=== PATIENT | male | born 1955 | race Caucasian/White ===

== ENCOUNTER 2022-12-18 09:25 | Outpatient (OUT) | payer MEDICARE, MEDICAID, SELFPAY ==
--- NOTE | 2022-12-18 09:32 | CT_ITS ---
[address] [address] Patient Name: CRISTAL LANGLEY MRN: [id number] date: 1955 Sex: M Assigned Patient Location: CT Current Patient Location: CT Accession/Order Number: [id number] Exam Date: 12/18/2022 09:48 Report Date: 12/18/2022 11:10 At the request of: ARIN CRENSHAW Procedure: CT lung screening low-dose EXAMINATION: CT lung screening low-dose HISTORY: History Of Tobacco Dependence Z87.891 COMPARISON: CT chest 11/21/2021 TECHNIQUE: Axial, Coronal, and Sagittal images were created without the administration of IV contrast material. Dose reduction techniques were achieved by using automated exposure control and/or adjustment of mA and/or kV according to patient size and/or use of iterative reconstruction technique. FINDINGS: LUNGS: Right middle lobe 8 mm nodule; stable. Stable mild stranding within left upper lobe compatible with chronic scarring. No new nodules. PLEURA: No mass, effusion, or pneumothorax. VASCULATURE: No abnormality. MARIANA: No mass or pathologic adenopathy. MEDIASTINUM: No mass or pathologic adenopathy. CARDIAC: No enlargement, pericardial thickening, or significant calcification. AORTA: No aneurysm or dissection. CHEST WALL: No mass or axillary adenopathy BONES: No bone lesion or fracture. LIMITED ABDOMEN: No suspicious findings. Limited images of the upper abdomen. OTHER: Negative. CT/CT lung screening low-dose IMPRESSION: 1. Lung-RADS 2- Benign Appearance or Behavior. Nodules with a very low likelihood of becoming a clinically active cancer due to size or lack of growth. Follow-up CT Chest in 1 year. Electronically authenticated by: ANTOINETTE HOLLINGSWORTH Date: 12/18/2022 11:10
== END 2022-12-18 09:26 | disposition home or self-care (01) ==
LOC: CT 09:25
PROVIDERS: PCP Nurse Practitioner; Visit Provider Nurse Practitioner
DX: F17.210 Nicotine dependence, cigarettes, uncomplicated (principal)
CPT/HCPCS: 71271

== ENCOUNTER 2023-12-07 08:11 | Outpatient (OUT) | payer MEDICARE, MEDICAID, SELFPAY ==
[2023-12-07 09:01] LABS: Creatinine Urine Random 103.44 mg/dL (20.00-300.00); Microalbumin Urine Random <1.3 mg/dL (<=30.0)
[2023-12-07 09:07] LABS: Alanine Aminotransferase 19 U/L (16-63); Albumin Globulin Ratio 0.9; Albumin Level 3.3 g/dL (3.4-5.0); Alkaline Phosphatase 93 U/L (46-116); Anion Gap 12.9; Aspartate Amino Transferase 17 U/L (15-37); BUN Creatinine Ratio 8.7; Bilirubin Total 0.4 mg/dL (0.2-1.0); Calcium 8.8 mg/dL (8.5-10.1); Carbon Dioxide 27.4 mmol/L (21.0-32.0); Chloride 105 mmol/L (98-107); Chol HDL Ratio 3.4; Cholesterol 161 mg/dL (<=200); Estimated GFR (African America >60 (>=60); Estimated GFR (Non-African Ame >60 (>=60); Globulin 3.5 g/dL; Glucose 101 mg/dL (74-106); HDL Cholesterol 48 mg/dL (40-60); LDL Cholesterol Calculated 94.4 mg/dL; Potassium 4.3 mmol/L (3.5-5.1); Sodium 141 mmol/L (136-145); Total Protein 6.8 g/dL (6.4-8.2); Triglycerides 93 mg/dL (<=150); VLDL CHOLESTEROL 18.6 mg/dL
[2023-12-07 09:13] LABS: Bilirubin Urine NEGATIVE (NEGATIVE); Blood Urine NEGATIVE (NEGATIVE); Clarity Urine CLEAR (CLEAR); Color Urine LT. YELLOW (YELLOW); Glucose Urine UA NEGATIVE (NEGATIVE); Ketones Urine NEGATIVE (NEGATIVE); Leukocyte Esterase Urine NEGATIVE (NEGATIVE); Nitrite Urine NEGATIVE (NEGATIVE); Protein Urine NEGATIVE (NEG/TRACE); Specific Gravity Urine 1.025 (1.005-1.025); Urobilinogen Urine 0.2 EU/dL (0.2-1.0); pH Urine 6.5 (5.0-9.0)
[2023-12-07 09:15] LABS: Basophils Absolute Auto 0.1 10^3/uL (0.0-0.1); Basophils Percent Auto 0.8 % (0.2-2.0); Eosinophils Absolute Auto 0.4 10^3/uL (0.0-0.7); Hemoglobin 14.6 g/dL (14.0-18.0); Immature Granulocytes Abs Auto 0.02 10^3/uL (0.00-0.03); Immature Granulocytes Pct Auto 0.3 % (0.0-0.5); Lymphocytes Absolute Auto 1.9 10^3/uL (1.2-3.8); Lymphocytes Percent Auto 25.4 % (20.5-60.0); Mean Corpuscular HGB Conc 33.2 g/dL (29.9-35.2); Mean Corpuscular Hemoglobin 31.1 pg (25.9-34.0); Mean Corpuscular Volume 93.8 fL (80.0-94.0); Mean Platelet Volume 10.3 fL (9.5-13.5); Monocytes Absolute Auto 0.8 10^3/uL (0.3-0.8); Monocytes Percent Auto 10.8 % (1.7-12.0); Neutrophils Absolute Auto 4.3 10^3/uL (1.4-6.5); Neutrophils Percent Auto 57.7 % (43.0-75.0); Platelet Count 227 10^3/uL (150-450); Red Blood Count 4.69 10^6/uL (4.70-6.10); Red Cell Distribution Width 14.2 % (11.0-15.0); White Blood Count 7.4 10^3/uL (4.0-11.0)
[2023-12-07 09:55] LABS: Prostate Specific Antigen Scrn 0.37 ng/mL (<=4.00)
[2023-12-07 10:04] LABS: Urine Microscopic Indicated NO
== END 2023-12-07 08:12 | disposition home or self-care (01) ==
LOC: LAB 08:14
PROVIDERS: PCP Nurse Practitioner; Visit Provider Nurse Practitioner
DX: E78.2 Mixed hyperlipidemia (principal); I10 Essential (primary) hypertension; Z12.5 Encounter for screening for malignant neoplasm of prostate
CPT/HCPCS: 36415; 80053; 80061; 81003; 82043; 82570; 85025; G0103

== ENCOUNTER 2024-01-14 10:00 | Outpatient (OUT) | payer MEDICARE, MEDICAID, SELFPAY ==
--- NOTE | 2024-01-14 10:10 | CT_ITS ---
[address] [address] Patient Name: CRISTAL LANGLEY MRN: [id number] date: 1955 Sex: M Assigned Patient Location: CT Current Patient Location: Accession/Order Number: [id number] Exam Date: 01/14/2024 10:05 Report Date: 01/15/2024 09:25 At the request of: ARIN CRENSHAW Procedure: CT lung screening low-dose EXAMINATION: CT lung screening low-dose HISTORY: Nicotine dependence,F17.218 COMPARISON: CT lung cancer screening 12/18/2022 TECHNIQUE: Axial, Coronal, and Sagittal images were created without the administration of IV contrast material. Dose reduction techniques were achieved by using automated exposure control and/or adjustment of mA and/or kV according to patient size and/or use of iterative reconstruction technique. FINDINGS: LUNGS: Stable 8 mm nodule within right middle lobe. Stable thin curvilinear scarring within left upper lobe. No new nodules or acute infiltrates. PLEURA: No mass, effusion, or pneumothorax. VASCULATURE: No abnormality. MARIANA: No mass or pathologic adenopathy. MEDIASTINUM: No mass or pathologic adenopathy. CARDIAC: No enlargement, pericardial thickening, or pericardial effusion. Coronary Artery calcifications: Coronary calcifications are mild. AORTA: No aneurysm or dissection. CHEST WALL: No mass or axillary adenopathy BONES: No bone lesion or fracture. LIMITED ABDOMEN: Stable right hepatic dome small cyst versus hemangioma. Limited images of the upper abdomen. OTHER: Negative. CT/CT lung screening low-dose IMPRESSION: 1. Lung-RADS 2- Benign Appearance or Behavior. Nodules with a very low likelihood of becoming a clinically active cancer due to size or lack of growth. Follow-up CT Chest in 1 year. Electronically authenticated by: ANTOINETTE HOLLINGSWORTH Date: 01/15/2024 09:25
--- OUTSIDE RECORDS SUMMARY | 2024-01-14 10:25 | XMS_ITS | CCD ---
Author Organization [facility] Care Team Providers Care Security Guard Supervisor Name Role Phone MD Valeriy Lima Attending Provider Sloane Cruz Primary Care Provider Sloane Cruz Primary Care Unavailable Valeriy Lima Attending Unavailable Valeriy Lima Admitting Unavailable Valeriy Lima Attending Unavailable Valeriy Lima Admitting Unavailable Nancy Sloane J Primary Care Unavailable AICHHOLZ, SECURITY OPERATIONS CENTER ANALYST SLOANE Primary Care Unavailable HORACIO CEE Admitting Unavailable HORACIO CEE Attending Unavailable AICHHOLZ, TREMAYNE SLOANE Primary Care Unavailable AICHHOLZ, SECURITY OPERATIONS CENTER ANALYST [place] Consulting Unavailable AICHHOLZ, TREMAYNE SLOANE Attending Unavailable AICHHOLZ, SECURITY OPERATIONS CENTER ANALYST [place] Admitting Unavailable DR ANTOINETTE HOLLINGSWORTH Consulting Unavailable AICHHOLZ, SECURITY OPERATIONS CENTER ANALYST [place] Primary Care Unavailable AICHHOLZ, SECURITY OPERATIONS CENTER ANALYST [place] Consulting Unavailable AICHHOLZ, SECURITY OPERATIONS CENTER ANALYST [place] Attending Unavailable AICHHOLZ, SECURITY OPERATIONS CENTER ANALYST [place] Admitting Unavailable AICHGUNNARZ, SLOANE Attending Unavailable Medications Current Medications Medication Drug Class(es) Dates Sig (Normalized) Sig (Original) aspirin 81 mg oral tablet (2 sources) Platelet Aggregation Inhibitor, Nonsteroidal Anti-inflammatory Drug Start: 06-01-2022 take 81 mg by mouth once daily Aspirin Active 81 MG PO Daily June 01, 2022 12:00am lisinopril 10 mg oral tablet (2 sources) Angiotensin Converting Enzyme Inhibitor Start: 06-01-2022 take 10 mg by mouth once daily Lisinopril Active 10 MG PO Daily June 01, 2022 12:00am meclizine hydrochloride 25 mg oral tablet (2 sources) Antiemetic Start: 06-01-2022 take 25 mg by mouth once daily Meclizine Active 25 MG PO Daily June 01, 2022 12:00am pravastatin sodium 40 mg oral tablet (2 sources) HMG-CoA Reductase Inhibitor Start: 06-01-2022 take 40 mg by mouth once daily Pravastatin Active 40 MG PO Daily June 01, 2022 12:00am Problems Active Problems Problem Classification Problem Date Documented Da te Episodic/Chronic Cataract (1 source) Unspecified cataract; Translations: [Unspecified cataract] Onset: 06-01-2022 Chronic Cataract (1 source) Cataract; Translations: [Age-related nuclear cataract, left eye] Onset: 06-15-2022 Chronic obstructive pulmonary disease and bronchiectasis (4 sources) Emphysema, unspecified; Translations: [EMPHYSEMA UNSPECIFIED] Onset: 11-15-2021 Chronic Disorders of lipid metabolism (1 source) Hyperlipidemia, unspecified; Translations: [HYPERLIPIDEMIA UNSPECIFIED] Onset: 11-18-2021 Chronic Essential hypertension (1 source) Essential (primary) hypertension; Translations: [ESSENTIAL PRIMARY HYPERTENSION] Onset: 11-18-2021 Chronic Past or Other Problems Problem Classification Problem Date Documented Da te Episodic/Chronic Other screening for suspected conditions (not mental disorders or infectious disease) (2 sources) Encounter for screening for malignant neoplasm of respiratory organs; Translations: [Encounter for screening for malignant neoplasm of prostate] Onset: 11-18-2021 Episodic Screening and history of mental health and substance abuse codes (4 sources) Personal history of nicotine dependence; Translations: [PERSONAL HISTORY OF NICOTINE DEPEND] Onset: 11-21-2021 Episodic Results Test Name Value Interpretation Reference Range Facil ity CBC AUTO DIFFon 09-20-2022 BASO # 0.1 103/ul Normal 0.0-0.1 [facility] Comment on above: Performed By: #### C BC #### [facility] [address] [address] [address] Alex Rios Basophils/100 WBC (Bld) 0.9 % Normal 0.2-2.0 [facility] Comment on above: Performed By: #### C BC #### [facility] [address] [place], [place] [address] Dr. Alex Rios EO # 0.5 103/ul Normal 0.0-0.7 [facility] Comment on above: Performed By: #### C BC #### [facility] [address] [place] [address] Dr. Alex Rios Eosinophils/100 WBC (Bld) 5.9 % Normal 0.9-7.0 [facility] Comment on above: Performed By: #### C BC #### [facility] [address] [place] [address] Dr. Alex Rios Erythrocyte distribution width (RBC) [Ratio] 13.2 % Normal 11.0-15.0 [facility] Comment on above: Performed By: #### C BC #### [facility] [address] [place] [address] Dr. Alex Rios Hematocrit (Bld) [Volume fraction] 39.1 % Critically low 42.0-54.0 [facility] Comment on above: Performed By: #### C BC #### [facility] [address] [place] [address] Dr. Alex Rios Hemoglobin (Bld) [Mass/Vol] 13.5 g/dL Critically low 14.0-18.0 [facility] Comment on above: Performed By: #### C BC #### [facility] [address] [place] [address] Dr. Alex Rios IG # 0.01 10e3/ul Normal 0.00-0.03 [facility] Comment on above: Performed By: #### C BC #### [facility] [address] [place] [address] Dr. Alex Rios IG % 0.1 % Normal 0.0-0.5 [facility] Comment on above: Performed By: #### C BC #### [facility] [address] [place] [address] Dr. Alex Rios LYMPH # 3.1 103/ul Normal 1.2-3.8 [facility] Comment on above: Performed By: #### C BC #### [facility] [address] [place] [address] Dr. Alex Rios Lymphocytes/100 WBC (Bld) 37.7 % Normal 20.5-60.0 [facility] Comment on above: Performed By: #### C BC #### [facility] [address] [place] [address] Dr. Alex Rios MANUAL DIFF REQ NO Normal [facility] Comment on above: Performed By: #### C BC #### [facility] [address] [place] [address] Dr. Alex Rios MCH (RBC) [Entitic mass] 31.9 pg Normal 25.9-34.0 [facility] Comment on above: Performed By: #### C BC #### [facility] [address] [place] [address] Dr. Alex Rios MCHC (RBC) [Mass/Vol] 34.5 g/dL Normal 29.9-35.2 [facility] Comment on above: Performed By: #### C BC #### [facility] [address] [place] [address] Dr. Alex Rios MCV (RBC) [Entitic vol] 92.4 fL Normal 80.0-94.0 [facility] Comment on above: Performed By: #### C BC #### [facility] [address] [place] [address] Dr. Alex Rios MONO # 0.8 103/ul Normal 0.3-0.8 [facility] Comment on above: Performed By: #### C BC #### [facility] [address] [place] [address] Dr. Alex Rios Monocytes/100 WBC (Bld) 9.8 % Normal 1.7-12.0 [facility] Comment on above: Performed By: #### C BC #### [facility] [address] [place] [address] Dr. lAex Rios NEUT # 3.8 103/ul Normal 1.4-6.5 [facility] Comment on above: Performed By: #### C BC #### [facility] [address] [place] [address] Dr. Alex Rios Neutrophils/100 WBC (Bld) 45.6 % Normal 43.0-75.0 [facility] Comment on above: Performed By: #### C BC #### [facility] [address] [place], [place] [address] Dr. Alex Rios Platelet mean volume (Bld) [Entitic vol] 10.7 fL Normal 9.5-13.5 [facility] Comment on above: Performed By: #### C BC #### [facility] [address] [place], [place] [address] Dr. Alex Rios PLT 242 103/ul Normal 150-450 [facility] Comment on above: Performed By: #### C BC #### [facility] [address] [place], [place] [address] Dr. Alex Rios RBC 4.23 106/ul Critically low 4.70-6.10 [facility] Comment on above: Performed By: #### C BC #### [facility] [address] [place], [place] [address] Dr. Alex Rios WBC 8.2 103/ul Normal 4.0-11.0 [facility] Comment on above: Performed By: #### C BC #### [facility] [address] [place], [place] [address] LUNG CANCER SCREENINGon 0 11-21-2021 CT LUNG CANCER SCREENING EXAMINATION: CT LUNG CANCER SCREENING HISTORY: Nicotine dependence ; follow up lung nodules COMPARISON: CT lung cancer screening 12/18/2019, 03/07/2017 TECHNIQUE: Axial, Coronal, and Sagittal images were created without the administration of IV contrast material. Dose reduction techniques were achieved by using automated exposure control and/or adjustment of mA and/or kV according to patient size and/or use of iterative reconstruction technique. 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 A few tiny punctate nodules scattered within the lungs, stable. No infiltrates. PLEURA: No mass, effusion, or pneumothorax. VASCULATURE: No abnormality. MARIANA: No mass or pathologic adenopathy. MEDIASTINUM: No mass or pathologic adenopathy. CARDIAC: No enlargement, pericardial thickening, or significant calcification. AORTA: No aneurysm or dissection. CHEST WALL: No mass or axillary adenopathy BONES: No bone lesion or fracture. LIMITED ABDOMEN: Stable small hepatic cyst versus hemangioma. Limited images of the upper abdomen. OTHER: Negative. IMPRESSION: 1. LUNG SCREENING: Lung-RADS Category 2- Benign Appearance or Behavior. Nodules with a very low likelihood of becoming a clinically active cancer due to size or lack of growth. 2. Continue annual screening with LDCT in 12 months. Electronically authenticated by: ANTOINETTE HOLLINGSWORTH Date: 2021-11-21 17:44 Normal [facility] CBC AUTO DIFFon 11-15-2021 BASO # 0.0 103/ul Normal 0.0-0.1 [facility] Comment on above: Performed By: #### C BC #### [facility] [address] [place] [address] Dr. Alex Rios Basophils/100 WBC (Bld) 0.6 % Normal 0.2-2.0 [facility] Comment on above: Performed By: #### C BC #### [facility] [address] [place] [address] Dr. Alex Rios EO # 0.3 103/ul Normal 0.0-0.7 [facility] Comment on above: Performed By: #### C BC #### [facility] [address] [place] [address] Dr. Alex Rios Eosinophils/100 WBC (Bld) 4.9 % Normal 0.9-7.0 [facility] Comment on above: Performed By: #### C BC #### [facility] [address] [place] [address] Dr. Alex Rios Erythrocyte distribution width (RBC) [Ratio] 13.8 % Normal 11.0-15.0 [facility] Comment on above: Performed By: #### C BC #### [facility] [address] [place] [address] Dr. Alex Rios Hematocrit (Bld) [Volume fraction] 42.4 % Normal 42.0-54.0 [facility] Comment on above: Performed By: #### C BC #### [facility] [address] [place] [address] Dr. Alex Rios Hemoglobin (Bld) [Mass/Vol] 13.8 g/dL Critically low 14.0-18.0 [facility] Comment on above: Performed By: #### C BC #### [facility] [address] [place] [address] Dr. Alex Rios IG # 0.02 10e3/ul Normal 0.00-0.03 [facility] Comment on above: Performed By: #### C BC #### [facility] [address] [place] [address] Dr. Alex Rios IG % 0.3 % Normal 0.0-0.5 [facility] Comment on above: Performed By: #### C BC #### [facility] [address] [place] [address] Dr. Alex Rios LYMPH # 1.7 103/ul Normal 1.2-3.8 [facility] Comment on above: Performed By: #### C BC #### [facility] [address] [place] [address] Dr. Alex Rios Lymphocytes/100 WBC (Bld) 25.5 % Normal 20.5-60.0 [facility] Comment on above: Performed By: #### C BC #### [facility] [address] [place] [address] Dr. Alex Rios MANUAL DIFF REQ NO Normal [facility] Comment on above: Performed By: #### C BC #### [facility] [address] [place] [address] Dr. Alex Rios MCH (RBC) [Entitic mass] 31.1 pg Normal 25.9-34.0 [facility] Comment on above: Performed By: #### C BC #### [facility] [address] [place] [address] Dr. Alex Rios MCHC (RBC) [Mass/Vol] 32.5 g/dL Normal 29.9-35.2 [facility] Comment on above: Performed By: #### C BC #### [facility] [address] [place] [address] Dr. Alex Rios MCV (RBC) [Entitic vol] 95.5 fL Critically high 80.0-94.0 [facility] Comment on above: Performed By: #### C BC #### [facility] [address] [address] [address] Alex Rios MONO # 0.7 103/ul Normal 0.3-0.8 [facility] Comment on above: Performed By: #### C BC #### [facility] [address] [address] [address] Alex Rios Monocytes/100 WBC (Bld) 11.0 % Normal 1.7-12.0 [facility] Comment on above: Performed By: #### C BC #### [facility] [address] [place] [address] Dr. Alex Rios NEUT # 3.8 103/ul Normal 1.4-6.5 [facility] Comment on above: Performed By: #### C BC #### [facility] [address] [place] [address] Dr. Alex Rios Neutrophils/100 WBC (Bld) 57.7 % Normal 43.0-75.0 [facility] Comment on above: Performed By: #### C BC #### [facility] [address] [place] [address] Dr. Alex Rios Platelet mean volume (Bld) [Entitic vol] 10.6 fL Normal 9.5-13.5 [facility] Comment on above: Performed By: #### C BC #### [facility] [address] [place] [address] Dr. Alex Rios PLT 220 103/ul Normal 150-450 [facility] Comment on above: Performed By: #### C BC #### [facility] [address] [place] [address] Dr. Alex Rios RBC 4.44 106/ul Critically low 4.70-6.10 [facility] Comment on above: Performed By: #### C BC #### [facility] [address] [place] [address] Dr. Alex Rios WBC 6.5 103/ul Normal 4.0-11.0 [facility] Comment on above: Performed By: #### C BC #### [facility] [address] [place] [address] Dr. Alex Rios LIPID PROFILEon 11-15-2021 CHOL-HDL RATIO NORM SEE BELOW Normal [facility] Comment on above: Result Comment: 3.3 - 4.4 LOW RISK 4.4 - 7.1 AVERAGE RISK 7.1 - 11.0 MODERATE RISK >11.0 HIGH RISK Performed By: #### C MP, LIPID #### [facility] [address] [address] [address] Alex Rios Cholesterol [Mass/Vol] 184 mg/dL Normal <=200 [facility] Comment on above: Performed By: #### C MP, LIPID #### [facility] [address] [address] [address] Alex Rios Cholesterol in HDL [Mass/Vol] 45 mg/dL Normal 40-60 [facility] Comment on above: Performed By: #### C MP, LIPID #### [facility] [address] [address] [address] Alex Rios Cholesterol in LDL [Mass/Vol] 121.2 mg/dL Normal [facility] Comment on above: Performed By: #### C MP, LIPID #### [facility] [address] [address] [address] Alex Rios Cholesterol.total/C holesterol in HDL [Mass ratio] 4.1 {ratio} Normal [facility] Comment on above: Performed By: #### C MP, LIPID #### [facility] [address] [address] [address] Alex Rios HDL NORMAL > or = 60 mg/dl - LO W CARDIOVASCULAR RISK <40 mg/dl - HIGH CARDIOVASCULAR RISK Normal [facility] Comment on above: Performed By: #### C MP, LIPID #### [facility] [address] [address] [address] Alex Rios LDL CALC NORMAL SEE BELOW Normal [facility] Comment on above: Result Comment: <100 mg/dl OPTIMAL 100 - 129 mg/dl NEAR OR ABOVE OPTIMAL 130 - 159 mg/dl BORDERLINE HIGH 160 - 189 mg/dl HIGH >190 mg/dl VERY HIGH Performed By: #### C MP, LIPID #### [facility] [address] [address] [address] Alex Rios Triglyceride [Mass/Vol] 89 mg/dL Normal <=150 [facility] Comment on above: Performed By: #### C MP, LIPID #### [facility] [address] [place] [address] Dr. Alex Rios VLDL CALC 17.8 mg/dL Normal [facility] Comment on above: Performed By: #### C MP, LIPID #### [facility] [address] [place] [address] Dr. Alex Rios PROF 14(COMP METB)on 022 Albumin [Mass/Vol] 3.6 g/dL Normal 3.4-5.0 [facility] Comment on above: Performed By: #### C MP, LIPID #### [facility] [address] [place] [address] Dr. Alex Rios Albumin/Globulin [Mass ratio] 0.9 {ratio} Normal [facility] Comment on above: Performed By: #### C MP, LIPID #### [facility] [address] [place] [address] Dr. Alex Rios ALP [Catalytic activity/Vol] 72 U/L Normal 46-116 [facility] Comment on above: Performed By: #### C MP, LIPID #### [facility] [address] [place] [address] Dr. Alex Rios ALT [Catalytic activity/Vol] 16 U/L Normal 16-63 [facility] Comment on above: Performed By: #### C MP, LIPID #### [facility] [address] [place] [address] Dr. Alex Rios Anion gap [Moles/Vol] 8.5 mmol/L Normal [facility] Comment on above: Performed By: #### C MP, LIPID #### [facility] [address] [place] [address] Dr. Alex Rios AST [Catalytic activity/Vol] 16 U/L Normal 15-37 [facility] Comment on above: Performed By: #### C MP, LIPID #### [facility] [address] [place] [address] Dr. Alex Rios Bilirubin [Mass/Vol] 0.3 mg/dL Normal 0.2-1.0 [facility] Comment on above: Performed By: #### C MP, LIPID #### [facility] [address] [place] [address] Dr. Alex Rios Calcium [Mass/Vol] 8.8 mg/dL Normal 8.5-10.1 [facility] Comment on above: Performed By: #### C MP, LIPID #### [facility] [address] [place] [address] Dr. Alex Rios Chloride [Moles/Vol] 106 mmol/L Normal 98-107 [facility] Comment on above: Performed By: #### C MP, LIPID #### [facility] [address] [place] [address] Dr. Alex Rios CO2 [Moles/Vol] 28.6 mmol/L Normal 21.0-32.0 [facility] Comment on above: Performed By: #### C MP, LIPID #### [facility] [address] [place] [address] Dr. Alex Rios Creatinine [Mass/Vol] 0.93 mg/dL Normal 0.70-1.30 [facility] Comment on above: Performed By: #### C MP, LIPID #### [facility] [address] [place] [address] Dr. Alex Rios EGFR-AF CONGOLESE >60 Normal >=60 [facility] Comment on above: Performed By: #### C MP, LIPID #### [facility] [address] [place] [address] Dr. Alex Rios EGFR-NON AF CONGOLESE >60 Normal >=60 [facility] Comment on above: Performed By: #### C MP, LIPID #### [facility] [address] [place] [address] Dr. Alex Rios Globulin (S) [Mass/Vol] 3.9 g/dL Normal [facility] Comment on above: Performed By: #### C MP, LIPID #### [facility] [address] [place] [address] Dr. Alex Rios Glucose [Mass/Vol] 102 mg/dL Normal 74-106 [facility] Comment on above: Performed By: #### C MP, LIPID #### [facility] [address] [place] [address] Dr. Alex Rios Potassium [Moles/Vol] 4.1 mmol/L Normal 3.5-5.1 [facility] Comment on above: Performed By: #### C MP, LIPID #### [facility] [address] [place] [address] Dr. Alex Rios Protein [Mass/Vol] 7.5 g/dL Normal 6.4-8.2 [facility] Comment on above: Performed By: #### C MP, LIPID #### [facility] [address] [place] [address] Dr. Alex Rios Sodium [Moles/Vol] 139 mmol/L Normal 136-145 [facility] Comment on above: Performed By: #### C MP, LIPID #### [facility] [address] [place] [address] Dr. Alex Rios Urea nitrogen [Mass/Vol] 9.0 mg/dL Normal 7.0-18.0 [facility] Comment on above: Performed By: #### C MP, LIPID #### [facility] [address] [place] [address] Dr. Alex Rios Urea nitrogen/Creatinine [Mass ratio] 9.7 mg/mg Normal [facility] Comment on above: Performed By: #### C MP, LIPID #### [facility] [address] [place] [address] Dr. Alex Rios UA RANDOM W/MICROSCOPICon BACTERIA NONE SEEN Normal NONE SEEN [facility] Comment on above: Performed By: #### U AMIC #### [facility] [address] [place] [address] Dr. Alex Rios Bilirubin Ql (U) Negative Normal NEGATIVE [facility] Comment on above: Performed By: #### U AMIC #### [facility] [address] [place] [address] Dr. Alex Rios CAST NONE SEEN Normal NONE SEEN [facility] Comment on above: Performed By: #### U AMIC #### [facility] [address] [address] [address] Alex Rios Clarity (U) CLEAR Normal CLEAR [facility] Comment on above: Performed By: #### U AMIC #### [facility] [address] [address] [address] Alex Rios Color (U) YELLOW Normal YELLOW [facility] Comment on above: Performed By: #### U AMIC #### [facility] [address] [address] [address] Alex Rios Crystals LM Nom (Urine sed) NONE SEEN Normal NONE SEEN [facility] Comment on above: Performed By: #### U AMIC #### [facility] [address] [place] [address] Dr. Alex Rios Epithelial cells LM Ql (Urine sed) FEW Abnormal NONE SEEN /RARE [facility] Comment on above: Performed By: #### U AMIC #### [facility] [address] [address] [address] Alex Rios Glucose Ql (U) Negative Normal NEGATIVE [facility] Comment on above: Performed By: #### U AMIC #### [facility] [address] [address] [address] Alex Rios Hemoglobin Ql (U) Negative Normal NEGATIVE [facility] Comment on above: Performed By: #### U AMIC #### [facility] [address] [address] [address] Alex Rios Ketones Ql (U) Negative Normal NEGATIVE [facility] Comment on above: Performed By: #### U AMIC #### [facility] [address] [address] [address] Alex Rios LEUKOCYTES Negative Normal NEGATIVE [facility] Comment on above: Performed By: #### U AMIC #### [facility] [address] [address] [address] Alex Rios MUCOUS MODERATE Abnormal NONE SEEN [facility] Comment on above: Performed By: #### U AMIC #### [facility] [address] [address] [address] Alex Rios Nitrite Ql (U) Negative Normal NEGATIVE [facility] Comment on above: Performed By: #### U AMIC #### [facility] [address] [address] [address] Alex Rios pH (U) 6.0 [pH] Normal 5-9 [facility] Comment on above: Performed By: #### U AMIC #### [facility] [address] [address] [address] Alex Rios RBC NONE SEEN Abnormal 0-2 [facility] Comment on above: Performed By: #### U AMIC #### [facility] [address] [place] [address] Dr[address] Alex Rios SPEC GRAVITY 1.025 Normal 1.005-<=1.025 [facility] Comment on above: Performed By: #### U AMIC #### [facility] [address] [address] [address] Alex Rios UA PROTEIN Negative Normal NEGATIVE/ TRACE [facility] Comment on above: Performed By: #### U AMIC #### [facility] [address] [address] [address] Alex Rios Urobilinogen Qn (U) 0.2 {Mac'U}/dL Normal 0.2 - 1. 0 [facility] Comment on above: Performed By: #### U AMIC #### [facility] [address] [address] [address] Alex Rios WBC NONE SEEN Normal NONE SEEN [facility] Comment on above: Performed By: #### U AMIC #### [facility] [address] [address] [address] Alex Rios Vital Signs Date Time Vital Sign Value Performing Clinician [place] 06-15-2022 10:08-0500 Diastolic blood pressure 78 mm[Hg] Sloane Cruz Work Phone: [facility] 06-15-2022 10:08-0500 Heart rate 76 /min Sloane Cruz Work Phone: [facility] 06-15-2022 10:08-0500 Respiratory rate 16 /min Sloane Aichholz Work Phone: [facility] 06-15-2022 10:08-0500 SaO2% (BldA) [Mass fraction] 99 % Sloane Aichholz Work Phone: [facility] 06-15-2022 10:08-0500 Systolic blood pressure 136 mm[Hg] Sloane Aichholz Work Phone: [facility] 06-15-2022 08:21-0500 Body height 191.77 cm Sloane Aichholz Work Phone: [facility] 06-15-2022 08:21-0500 Body mass index (BMI) [Ratio] 27.7 kg/m2 Sloane Aichholz Work Phone: [facility] 06-15-2022 08:21-0500 Body weight 102.05 kg Sloane Aichholz Work Phone: [facility] 06-15-2022 07:42-0500 Body temperature 98.4 [degF] Sloane Aichholz Work Phone: [facility] 06-01-2022 10:10-0500 Diastolic blood pressure 75 mm[Hg] Sloane Aichholz Work Phone: [facility] 06-01-2022 10:10-0500 Heart rate 67 /min Sloane Aichholz Work Phone: [facility] 06-01-2022 10:10-0500 Respiratory rate 16 /min Sloane Aichholz Work Phone: [facility] 06-01-2022 10:10-0500 SaO2% (BldA) [Mass fraction] 97 % Sloane Aichholz Work Phone: [facility] 06-01-2022 10:10-0500 Systolic blood pressure 145 mm[Hg] Sloane Aichholz Work Phone: [facility] 06-01-2022 08:29-0500 Body height 191.77 cm Sloane Dinohholz Work Phone: [facility] 06-01-2022 08:29-0500 Body mass index (BMI) [Ratio] 27.7 kg/m2 Sloane Parthaholz Work Phone: [facility] 06-01-2022 08:29-0500 Body weight 102.05 kg Sloane Aichholz Work Phone: [facility] 06-01-2022 07:19-0500 Body temperature 98.1 [degF] Sloane Eldonz Work Phone: [facility] Encounters Encounter Date Encounter Type Care Provider Facility Start: 12-18-2023 End: 12-18-2023 ambulatory SLOANE CRUZ Not Available Start: 09-20-2022 ambulatory [facility] SLOANE CRUZ Facil ity:[facility] Start: 06-15-2022 End: 06-15-2022 ambulatory Sloane Rayna Cruz Facility:[facility] Start: 06-15-2022 End: 06-15-2022 Admission to same day surgery center Sloane Nancy Work Phone: [facility] Start: 06-15-2022 End: 06-15-2022 ambulatory Sloane Rayna Cruz Work Phone: [facility] Work Phone: Start: 06-01-2022 End: 06-01-2022 ambulatory Valeriy Lima Facility:[facility] Start: 06-01-2022 End: 06-01-2022 Admission to same day surgery center Sloane Cruz Work Phone: [facility] Start: 06-01-2022 End: 06-01-2022 ambulatory Sloane Rayna Cruz Work Phone: [facility] Work Phone: Start: 11-21-2021 End: 11-22-2021 ambulatory TREMAYNE CRUZ Facility:[facility] Start: 11-15-2021 End: 11-16-2021 ambulatory TREMAYNE CRUZ Facility:[facility] Procedures Date Procedure Procedure Detail Performing Clinician Start: 06-15-2022 Phacoemulsification of cataract with intraocular lens implantation Sloane Dinororouziel Work Phone: Start: 06-01-2022 Phacoemulsification of cataract with intraocular lens implantation Sloane Chavisuziel Work Phone: Start: 11-15-2021 PSA screening TREMAYNE CRUZ Comment on above: Performed By: #### P [facility] #### [facility] [address] [place] [address] Dr. Alex Rios Plan of Treatment Date Care Activity Detail Author Start: 06-15-2022 End: 06-15-2022 [facility] Start: 06-01-2022 End: 06-01-2022 [facility] Patient referral [facility] Work Phone: Immunizations Immunization Date Immunization Notes Care Provider Fa cility 08-24-2020 COVID-19 mRNA-[id number] (Moderna) Sloane Colónz Work Phone: [facility] 07-27-2020 COVID-19 mRNA-1303 (Moderna) Sloanetrupti Cruz Work Phone: [facility] Payers Date Payer Category Payer Medicaid [id number] 2022 Self-pay [id number] 1959 Medicaid [id number] 1959 Private Health Insurance [id number] 1959 Unknown [id number] 1955 Unknown [id number] 2.16.84 [id number] 1955 Unknown [id number] 2.16.84 [id number] 1955 Unknown [id number] 2.16.84 [id number] 1955 Unknown [id number] 2.16.84 [id number] Unknown [id number] 2.16.8 [id number] Unknown [id number] 2.16.8 [id number] Social History Date Type Detail Facility Start: 06-01-2022 End: 06-15-2022 Tobacco smoking status NHIS Smoker (finding) [facility] Start: 1955 Sex Assigned At Male F [facility] Medical Equipment Procedure Code Equipment Code Equipment Origin al Text Equipment Identifier Dates Phacoemulsification of cataract with intraocular lens implantation Posterior-chamber intraocular lens, pseudophakic ()[id number] [facility] Start: 06-01-2022 Goals Date Patient Goal Desired Activity /State Evaluation note Note Date & Type Note Facility Evaluation note No assessment information availa [facility] Work Phone: Hospital Discharge instructions Note Date & Type Note Facility Hospital Discharge instructions Additional Instructions POST CATARACT SURGERY INSTRUCTIONS EYEDROPS First day (24 hours) [Ocuflox or Vigamox and Pred Forte-use 1 drop to operative eye every hour while awake.] [Artificial tears- May use 1 drop 4 times a day as needed in the surgical eye.] Next day [Ocuflox or Vigamox-continue to use the drop in the surgery eye 4 times per day for 1 week.] [Pred Forte-start using the drop in the surgery eye 4 times per day for 1 week, then taper to 3 times per day for 1 week, 2 times a day for 1 week, then once a day for 1 week.] [Artificial tears- May use 1 drop 4 times a day as needed in the surgical eye.] -Wait 5 minutes or more between using the different medications. -Please bring all your eyedrops to every follow-up visit. BATHING: You may shower, bathe, or wash her hair normally after the surgery. SUNGLASSES: Please bring sunglasses for your ride home. Some people are light-sensitive for a few weeks following surgery. Wear sunglasses for comfort. Sunglasses are not required. DUE TO ANESTHESIA: DO NOT make complex decision/sign legal documents for 24 hours after your procedure. No smoking or drinking alcohol for 24 hours. EYE RUBBING: DO NOT RUB YOUR EYE for at least 4 weeks. BLUR: Blurriness is common for several days to weeks. IRRITATION: Mild irritation or watering eye is common. MEDICATION: Continue/resume normal medications, including eye drops. Patient educated on importance of managing medication information: -Give list of medications to primary care physician. -Update information when medications are discontinued, doses are changed or new medications added. -Carry medication list with you at all times in case of emergency. Call if questions/problems occur: If you experience 1. Persistent pain/vomiting 2. Sudden worsening of your eyesight. Please call your cloth brushing and sueding supervisor during normal business hours. If after business hours call Dr. Valeriy Lima at his cell [phone] or his office [phone]. [facility] Work Phone: Hospital Discharge instructions Note Date & Type Note Facility Hospital Discharge instructions Additional Instructions POST CATARACT SURGERY INSTRUCTIONS EYEDROPS First day (24 hours) Ocuflox or Vigamox and Pred Forte-use 1 drop to operative eye every hour while awake. Artificial tears- May use 1 drop 4 times a day as needed in the surgical eye. Next day Ocuflox or Vigamox-continue to use the drop in the surgery eye 4 times per day for 1 week. Pred Forte-start using the drop in the surgery eye 4 times per day for 1 week, then taper to 3 times per day for 1 week, 2 times a day for 1 week, then once a day for 1 week. Artificial tears- May use 1 drop 4 times a day as needed in the surgical eye. -Wait 5 minutes or more between using the different medications. -Please bring all your eyedrops to every follow-up visit. BATHING: You may shower, bathe, or wash her hair normally after the surgery. SUNGLASSES: Please bring sunglasses for your ride home. Some people are light-sensitive for a few weeks following surgery. Wear sunglasses for comfort. Sunglasses are not required. DUE TO ANESTHESIA: DO NOT make complex decision/sign legal documents for 24 hours after your procedure. No smoking or drinking alcohol for 24 hours. EYE RUBBING: DO NOT RUB YOUR EYE for at least 4 weeks. BLUR: Blurriness is common for several days to weeks. IRRITATION: Mild irritation or watering eye is common. MEDICATION: Continue/resume normal medications, including eye drops. Patient educated on importance of managing medication information: -Give list of medications to primary care physician. -Update information when medications are discontinued, doses are changed or new medications added. -Carry medication list with you at all times in case of emergency. Call if questions/problems occur: If you experience 1. Persistent pain/vomiting 2. Sudden worsening of your eyesight. Please call your cloth brushing and sueding supervisor during normal business hours. If after business hours call Dr. Valeriy Lima at his cell [phone] or his office [phone]. [facility] Work Phone: Chief Complaint and Reason for Visit Chief Complaint Right Eye Cataract Chief Complaint Right Eye Cataract Left Eye Cataract Family History No Family History Records Found Relationship Condition Age at Onset Recorded Date/T maurizio Not Specified Malignant neoplasm Unknown brother Diabetes mellitus Unknown Advance Directives No Advanced Directives Records Found Advance Directive Response Recorded Date/ Time Advance Directives No June 01, 2022 7:06am Summary Purpose Additional Source Comments Care Teams (unrecognized sec tion and content) Team Status: Inactive Member Role Status Dates Valeriy Lima MD Attending Provider Active Sloane Cruz Primary Care Provider Active Team Status: Active Member Role Status Dates Sloane Cruz Primary Care Provider Active (unrecognized sect ion and content) No Status Records FoundNo Status Records FoundNo Status Records Found INFORMATION SOURCE (unrecogn ized section and content) DATE CREATED AUTHOR 06/22/2022 [facility] DATE CREATED AUTHOR AUTHOR'S ORGANIZ ATION 09/29/2022 [facility] DATE CREATED AUTHOR AUTHOR'S ORGANIZ ATION 12/20/2023 [facility] Specialists [facility] FOR RECORDS PERTAINING TO PATIENTS WHO ARE OR HAVE BEEN ENROLLED IN A CHEMICAL DEPENDENCY/SUBSTANCEABUSE PROGRAM, SOME INFORMATION MAY BE OMITTED. This clinical summary was aggregated from multiple sources. Caution should be exercised in using it in the provision of clinical care. This summary normalizes information from multiple sources, and as a consequence, information in this document may materially change the coding, format and clinical context of patient data. In addition, data may be omitted in some cases. CLINICAL DECISIONS SHOULD BE BASED ON THE PRIMARY CLINICAL RECORDS. [employer] provides no warranty or guarantee of the accuracy or completeness of information in this document.
== END 2024-01-14 10:01 | disposition home or self-care (01) ==
LOC: CT 10:00
PROVIDERS: PCP Nurse Practitioner; Visit Provider Nurse Practitioner
DX: F17.218 Nicotine dependence, cigarettes, with other nicotine-induced disorders (principal); Z12.2 Encounter for screening for malignant neoplasm of respiratory organs
CPT/HCPCS: 71271

== ENCOUNTER 2024-07-01 10:19 | Outpatient (OUT) | payer MEDICARE, MEDICAID, SELFPAY ==
--- OUTSIDE RECORDS SUMMARY | 2024-07-01 10:26 | XMS_ITS | CCD ---
Author Organization [facility] Care Team Providers Care Print Decorator Name Role Phone MD Valeriy Lima Attending Provider Sloane Cruz Primary Care Provider [phone] Sloane Cruz Primary Care Unavailable Valeriy Lima Attending Unavailable Valeriy Lima Admitting Unavailable Valeriy Lima Attending Unavailable Valeriy Lima Admitting Unavailable Nancy Sloane J Primary Care Unavailable AICHHOLZ, MEDICAID BILLER [place] Primary Care Unavailable HORACIO CEE Admitting Unavailable HORACIO CEE Attending Unavailable AICHHOLZ, MEDICAID BILLER [place] Primary Care Unavailable AICHHOLZ, MEDICAID BILLER [place] Consulting Unavailable AICHHOLZ, MEDICAID BILLER [place] Attending Unavailable AICHHOLZ, MEDICAID BILLER [place] Admitting Unavailable DR ANTOINETTE HOLLINGSWORTH Consulting Unavailable AICHHOLZ, MEDICAID BILLER [place] Primary Care Unavailable AICHHOLZ, MEDICAID BILLER [place] Consulting Unavailable AICHHOLZ, MEDICAID BILLER [place] Attending Unavailable AICHHOLZ, MEDICAID BILLER [place] Admitting Unavailable AICHGUNNARZ, SLOANE Attending Unavailable Jagjit Vargas MD Primary Care Provider Aichuziel BAIT TIER, Sloane Unavailable Medications Current Medications Medication Drug Class(es) Dates Sig (Normalized) Sig (Original) aspirin 81 mg oral tablet (7 sources) Platelet Aggregation Inhibitor, Nonsteroidal Anti-inflammatory Drug Start: 06-01-2022 take 81 mg by mouth once daily Aspirin Active 81 MG PO Daily June 01, 2022 12:00am take 1 tablet by mouth once michael y aspirin 81 MG EC tablet Take 81 mg by mouth Daily Active lisinopril 10 mg oral tablet (8 sources) Angiotensin Converting Enzyme Inhibitor Start: 12-05-2023 End: 06-03-2024 take 1 tablet by mouth once daily lisinopril 10 MG tablet Indications: Primary hypertension (CMS/HCC) Take 1 tablet (10 mg) by mouth Daily 90 tablet 03/05/2024 06/03/2024 Active Start: 06-01-2022 take 10 mg by mouth once daily Lisinopril Active 10 MG PO Daily June 01, 2022 12:00am meclizine hydrochloride 25 mg oral tablet (5 sources) Antiemetic Start: 03-25-2024 End: 04-24-2024 take 1 tablet by mouth once meclizine (Antivert) 25 MG tablet Indications: Benign paroxysmal vertigo, bilateral Take 1 tablet (25 mg) by mouth every 12 (twelve) hours if needed for dizziness 60 tablet 1 03/25/2024 04/24/2024 Active Start: 11-20-2023 End: 12-20-2023 take 1 tablet by mouth once meclizine (Antivert) 25 MG tablet Indications: Benign paroxysmal vertigo, bilateral Take 1 tablet (25 mg) by mouth every 12 (twelve) hours if needed for dizziness 60 tablet 1 11/20/2023 12/20/2023 Active Start: 06-01-2022 take 25 mg by mouth once daily Meclizine Active 25 MG PO Daily June 01, 2022 12:00am pravastatin sodium 40 mg oral tablet (8 sources) HMG-CoA Reductase Inhibitor Start: 12-05-2023 End: 06-03-2024 take 1 tablet by mouth at bedtime pravastatin (Pravachol) 40 MG tablet Indications: Mixed hyperlipidemia (CMS/HCC) Take 1 tablet (40 mg) by mouth at bedtime 90 tablet 03/05/2024 06/03/2024 Active Start: 06-01-2022 take 40 mg by mouth once daily Pravastatin Active 40 MG PO Daily June 01, 2022 12:00am Problems Active Problems Problem Classification Problem Date Documented Date Episodic/Chronic Cataract (1 source) Unspecified cataract; Translations: [Unspecified cataract] Onset: 06-01-2022 Chronic Cataract (1 source) Cataract; Translations: [Age-related nuclear cataract, left eye] Onset: 06-15-2022 Chronic obstructive pulmonary disease and bronchiectasis (11 sources) Emphysema, unspecified; Translations: [Pulmonary emphysema] Onset: 11-15-2021 Chronic Conditions associated with dizziness or vertigo (13 sources) Peripheral vertigo; Translations: [Benign paroxysmal vertigo, bilateral] Onset: 04-25-2023 Resolved: 12-18-2023 04-25-2023 Episodic Conduction disorders (5 sources) Intraventricular conduction defect; Translations: [Nonspecific intraventricular block] Onset: 10-13-2011 12-18-2023 Chronic Disorders of lipid metabolism (9 sources) Hyperlipidemia, unspecified; Translations: [Mixed hyperlipidemia] Onset: 11-18-2021 03-05-2024 Chronic Essential hypertension (9 sources) Essential (primary) hypertension; Translations: [Essential hypertension] Onset: 11-18-2021 03-05-2024 Chronic Substance-related disorders (7 sources) Tobacco dependence caused by cigarettes; Translations: [Nicotine dependence, cigarettes, with other nicotine-induced disorders] Onset: 12-18-2023 12-18-2023 Chronic Past or Other Problems Problem Classification Problem Date Documented Da te Episodic/Chronic Other lower respiratory disease (5 sources) Nodule of lung; Translations: [Solitary pulmonary nodule] Onset: 12-18-2023 01-17-2024 Episodic Other screening for suspected conditions (not mental disorders or infectious disease) (19 sources) Encounter for screening for malignant neoplasm of respiratory organs; Translations: [Encounter for screening for malignant neoplasm of prostate] Onset: 11-18-2021 Resolved: 12-05-2023 12-05-2023 Episodic Screening and history of mental health and substance abuse codes (4 sources) Personal history of nicotine dependence; Translations: [PERSONAL HISTORY OF NICOTINE DEPEND] Onset: 11-21-2021 Episodic Results Test Name Value Interpretation Reference Range Facil ity CBC AUTO DIFFon 09-20-2022 BASO # 0.1 103/ul Normal 0.0-0.1 [facility] Comment on above: Performed By: #### C BC #### [facility] [address] [place], [place] [address] Dr. Alex Rios Basophils/100 WBC (Bld) 0.9 % Normal 0.2-2.0 [facility] Comment on above: Performed By: #### C BC #### [facility] [address] [place], [place] [address] Dr. Alex Rios EO # 0.5 103/ul Normal 0.0-0.7 [facility] Comment on above: Performed By: #### C BC #### [facility] [address] [place] [address] Dr. Alex Rios Eosinophils/100 WBC (Bld) 5.9 % Normal 0.9-7.0 [facility] Comment on above: Performed By: #### C BC #### [facility] [address] [place] [address] Dr. Alex Rios Erythrocyte distribution width (RBC) [Ratio] 13.2 % Normal 11.0-15.0 [facility] Comment on above: Performed By: #### C BC #### [facility] [address] [place] [address] Dr. Alex Rios Hematocrit (Bld) [Volume fraction] 39.1 % Critically low 42.0-54.0 [facility] Comment on above: Performed By: #### C BC #### [facility] [address] [place] [address] Dr. Alex Rios Hemoglobin (Bld) [Mass/Vol] 13.5 g/dL Critically low 14.0-18.0 [facility] Comment on above: Performed By: #### C BC #### [facility] [address] [place] [address] Dr. Alex Rios IG # 0.01 10e3/ul Normal 0.00-0.03 [facility] Comment on above: Performed By: #### C BC #### [facility] [address] [place] [address] Dr. Alex Rios IG % 0.1 % Normal 0.0-0.5 [facility] Comment on above: Performed By: #### C BC #### [facility] [address] [place] [address] Dr. Alex Rios LYMPH # 3.1 103/ul Normal 1.2-3.8 [facility] Comment on above: Performed By: #### C BC #### [facility] [address] [place] [address] Dr. Alex Rios Lymphocytes/100 WBC (Bld) 37.7 % Normal 20.5-60.0 [facility] Comment on above: Performed By: #### C BC #### [facility] [address] [place] [address] Dr. Alex Rios MANUAL DIFF REQ NO Normal [facility] Comment on above: Performed By: #### C BC #### [facility] [address] [place] [address] Dr. Alex Rios MCH (RBC) [Entitic mass] 31.9 pg Normal 25.9-34.0 [facility] Comment on above: Performed By: #### C BC #### [facility] [address] [place] [address] Dr. Alex Rios MCHC (RBC) [Mass/Vol] 34.5 g/dL Normal 29.9-35.2 [facility] Comment on above: Performed By: #### C BC #### [facility] [address] [place] [address] Dr. Alex Rios MCV (RBC) [Entitic vol] 92.4 fL Normal 80.0-94.0 [facility] Comment on above: Performed By: #### C BC #### [facility] [address] [place] [address] Dr. Alex Rios MONO # 0.8 103/ul Normal 0.3-0.8 [facility] Comment on above: Performed By: #### C BC #### [facility] [address] [place] [address] Dr. Alex Rios Monocytes/100 WBC (Bld) 9.8 % Normal 1.7-12.0 [facility] Comment on above: Performed By: #### C BC #### [facility] [address] [place] [address] Dr. Alex Rios NEUT # 3.8 103/ul Normal 1.4-6.5 [facility] Comment on above: Performed By: #### C BC #### [facility] [address] [place] [address] Dr. Alex Rios Neutrophils/100 WBC (Bld) 45.6 % Normal 43.0-75.0 [facility] Comment on above: Performed By: #### C BC #### [facility] [address] [place], [place] [address] Dr. Alex Rios Platelet mean volume (Bld) [Entitic vol] 10.7 fL Normal 9.5-13.5 [facility] Comment on above: Performed By: #### C BC #### [facility] [address] [place] [id number] Alex Rios PLT 242 103/ul Normal 150-450 [facility] Comment on above: Performed By: #### C BC #### [facility] [address] [place], [place] [address] Dr. Alex Rios RBC 4.23 106/ul Critically low 4.70-6.10 [facility] Comment on above: Performed By: #### C BC #### [facility] [address] [place] [address] [address] Alex Rios WBC 8.2 103/ul Normal 4.0-11.0 [facility] Comment on above: Performed By: #### C BC #### [facility] [address] [place] [address] [address] LUNG CANCER SCREENINGon [...] ANTOINETTE HOLLINGSWORTH Date: 2021-11-21 17:44 Normal [facility] CBC AUTO DIFFon 11-15-2021 BASO # 0.0 103/ul Normal 0.0-0.1 [facility] Comment on above: Performed By: #### C BC #### [facility] [address] [place] [address] [address] Alex Rios Basophils/100 WBC (Bld) 0.6 % Normal 0.2-2.0 [facility] Comment on above: Performed By: #### C BC #### [facility] [address] [place] [address] Dr. Alex Rios EO # 0.3 103/ul Normal 0.0-0.7 [facility] Comment on above: Performed By: #### C BC #### [facility] [address] [place] [address] [address] Alex Rios Eosinophils/100 WBC (Bld) 4.9 % Normal 0.9-7.0 [facility] Comment on above: Performed By: #### C BC #### [facility] [address] [place] [address] Dr. Alex Rios Erythrocyte distribution width (RBC) [Ratio] 13.8 % Normal 11.0-15.0 [facility] Comment on above: Performed By: #### C BC #### [facility] [address] [place] [address] [address] Alex Rios Hematocrit (Bld) [Volume fraction] 42.4 % Normal 42.0-54.0 [facility] Comment on above: Performed By: #### C BC #### [facility] [address] [place] [address] Dr. Alex Rios Hemoglobin (Bld) [Mass/Vol] 13.8 g/dL Critically low 14.0-18.0 [facility] Comment on above: Performed By: #### C BC #### [facility] [address] [place] [address] Dr. Alex Rios IG # 0.02 10e3/ul Normal 0.00-0.03 [facility] Comment on above: Performed By: #### C BC #### [facility] [address] [place] [address] Dr. Alex Rios IG % 0.3 % Normal 0.0-0.5 [facility] Comment on above: Performed By: #### C BC #### [facility] [address] [place] [address] Dr. Alex Rios LYMPH # 1.7 103/ul Normal 1.2-3.8 [facility] Comment on above: Performed By: #### C BC #### [facility] [address] [place] [address] Dr. Alex Rios Lymphocytes/100 WBC (Bld) 25.5 % Normal 20.5-60.0 [facility] Comment on above: Performed By: #### C BC #### [facility] [address] [place] [address] Dr. Alex Rios MANUAL DIFF REQ NO Normal [facility] Comment on above: Performed By: #### C BC #### [facility] [address] [place] [address] Dr. Alex Rios MCH (RBC) [Entitic mass] 31.1 pg Normal 25.9-34.0 [facility] Comment on above: Performed By: #### C BC #### [facility] [address] [place] [address] Dr. Alex Rios MCHC (RBC) [Mass/Vol] 32.5 g/dL Normal 29.9-35.2 [facility] Comment on above: Performed By: #### C BC #### [facility] [address] [place] [address] Dr. Alex Rios MCV (RBC) [Entitic vol] 95.5 fL Critically high 80.0-94.0 [facility] Comment on above: Performed By: #### C BC #### [facility] [address] [place] [address] [address] Alex Rios MONO # 0.7 103/ul Normal 0.3-0.8 [facility] Comment on above: Performed By: #### C BC #### [facility] [address] [place] [address] Dr. Alex Rios Monocytes/100 WBC (Bld) 11.0 % Normal 1.7-12.0 [facility] Comment on above: Performed By: #### C BC #### [facility] [address] [place] [address] Dr. Alex Rios NEUT # 3.8 103/ul Normal 1.4-6.5 [facility] Comment on above: Performed By: #### C BC #### [facility] [address] [place] [address] Dr. Alex Rios Neutrophils/100 WBC (Bld) 57.7 % Normal 43.0-75.0 [facility] Comment on above: Performed By: #### C BC #### [facility] [address] [place] [address] Dr. Alex Rios Platelet mean volume (Bld) [Entitic vol] 10.6 fL Normal 9.5-13.5 [facility] Comment on above: Performed By: #### C BC #### [facility] [address] [place] [address] Dr. Alex Rios PLT 220 103/ul Normal 150-450 [facility] Comment on above: Performed By: #### C BC #### [facility] [address] [place] [address] Dr. Alex Rios RBC 4.44 106/ul Critically low 4.70-6.10 [facility] Comment on above: Performed By: #### C BC #### [facility] [address] [place] [address] Dr. Alex Rios WBC 6.5 103/ul Normal 4.0-11.0 [facility] Comment on above: Performed By: #### C BC #### [facility] [address] [place] [address] Dr. Alex Rios LIPID PROFILEon 11-15-2021 CHOL-HDL RATIO NORM SEE BELOW Normal [facility] Comment on above: Result Comment: 3.3 - 4.4 LOW RISK 4.4 - 7.1 AVERAGE RISK 7.1 - 11.0 MODERATE RISK >11.0 HIGH RISK Performed By: #### C MP, LIPID #### [facility] [address] [place] [address] [address] Alex Rios Cholesterol [Mass/Vol] 184 mg/dL Normal <=200 [facility] Comment on above: Performed By: #### C MP, LIPID #### [facility] [address] [place] [address] [address] Alex Rios Cholesterol in HDL [Mass/Vol] 45 mg/dL Normal 40-60 [facility] Comment on above: Performed By: #### C MP, LIPID #### [facility] [address] [place] [address] [address] Alex Rios Cholesterol in LDL [Mass/Vol] 121.2 mg/dL Normal [facility] Comment on above: Performed By: #### C MP, LIPID #### [facility] [address] [place] [address] [address] Alex Rios Cholesterol.total/C holesterol in HDL [Mass ratio] 4.1 {ratio} Normal [facility] Comment on above: Performed By: #### C MP, LIPID #### [facility] [address] [place] [address] [address] Alex Rois HDL NORMAL > or = 60 mg/dl - LO W CARDIOVASCULAR RISK <40 mg/dl - HIGH CARDIOVASCULAR RISK Normal [facility] Comment on above: Performed By: #### C MP, LIPID #### [facility] [address] [place] [address] [address] Alex Rios LDL CALC NORMAL SEE BELOW Normal [facility] Comment on above: Result Comment: <100 mg/dl OPTIMAL 100 - 129 mg/dl NEAR OR ABOVE OPTIMAL 130 - 159 mg/dl BORDERLINE HIGH 160 - 189 mg/dl HIGH >190 mg/dl VERY HIGH Performed By: #### C MP, LIPID #### [facility] [address] [place] [address] [address] Alex Rios Triglyceride [Mass/Vol] 89 mg/dL Normal <=150 [facility] Comment on above: Performed By: #### C MP, LIPID #### [facility] [address] [place] [address] Dr. Alex Rios VLDL CALC 17.8 mg/dL Normal [facility] Comment on above: Performed By: #### C MP, LIPID #### [facility] [address] [place] [address] Dr. Alex Rios PROF 14(COMP METB)on 022 Albumin [Mass/Vol] 3.6 g/dL Normal 3.4-5.0 [facility] Comment on above: Performed By: #### C MP, LIPID #### [facility] [address] [place] [address] Dr. Alex Rios Albumin/Globulin [Mass ratio] 0.9 {ratio} Normal [facility] Comment on above: Performed By: #### C MP, LIPID #### [facility] [address] [place] [address] Dr. Alex Rios ALP [Catalytic activity/Vol] 72 U/L Normal 46-116 [facility] Comment on above: Performed By: #### C MP, LIPID #### [facility] [address] [place] [address] Dr. Alex Rios ALT [Catalytic activity/Vol] 16 U/L Normal 16-63 [facility] Comment on above: Performed By: #### C MP, LIPID #### [facility] [address] [place] [address] Dr. Alex Rios Anion gap [Moles/Vol] 8.5 mmol/L Normal [facility] Comment on above: Performed By: #### C MP, LIPID #### [facility] [address] [place] [address] Dr. Alex Rios AST [Catalytic activity/Vol] 16 U/L Normal 15-37 [facility] Comment on above: Performed By: #### C MP, LIPID #### [facility] [address] [place] [address] Dr. Alex Rios Bilirubin [Mass/Vol] 0.3 mg/dL Normal 0.2-1.0 [facility] Comment on above: Performed By: #### C MP, LIPID #### [facility] [address] [place] [address] Dr. Alex Rios Calcium [Mass/Vol] 8.8 mg/dL Normal 8.5-10.1 [facility] Comment on above: Performed By: #### C MP, LIPID #### [facility] [address] [place] [address] Dr. Alex Rios Chloride [Moles/Vol] 106 mmol/L Normal 98-107 [facility] Comment on above: Performed By: #### C MP, LIPID #### [facility] [address] [place] [address] Dr. Alex Rios CO2 [Moles/Vol] 28.6 mmol/L Normal 21.0-32.0 [facility] Comment on above: Performed By: #### C MP, LIPID #### [facility] [address] [place] [address] Dr. Alex Rios Creatinine [Mass/Vol] 0.93 mg/dL Normal 0.70-1.30 [facility] Comment on above: Performed By: #### C MP, LIPID #### [facility] [address] [place] [address] Dr. Alex Rios EGFR-AF CITIZEN OF [place] >60 Normal >=60 [facility] Comment on above: Performed By: #### C MP, LIPID #### [facility] [address] [place] [address] Dr. Alex Rios EGFR-NON AF CITIZEN OF [place] >60 Normal >=60 [facility] Comment on above: Performed By: #### C MP, LIPID #### [facility] [address] [place] [address] Dr. Alex Rios Globulin (S) [Mass/Vol] 3.9 g/dL Normal [facility] Comment on above: Performed By: #### C MP, LIPID #### [facility] [address] [place] [address] Dr. Alex Rios Glucose [Mass/Vol] 102 mg/dL Normal 74-106 [facility] Comment on above: Performed By: #### C MP, LIPID #### [facility] [address] [place] [address] Dr. Alex Rios Potassium [Moles/Vol] 4.1 mmol/L Normal 3.5-5.1 [facility] Comment on above: Performed By: #### C MP, LIPID #### [facility] [address] [place] [address] Dr. Alex Rios Protein [Mass/Vol] 7.5 g/dL Normal 6.4-8.2 [facility] Comment on above: Performed By: #### C MP, LIPID #### [facility] [address] [place] [address] Dr. Alex Rios Sodium [Moles/Vol] 139 mmol/L Normal 136-145 [facility] Comment on above: Performed By: #### C MP, LIPID #### [facility] [address] [place] [address] Dr. Alex Rios Urea nitrogen [Mass/Vol] 9.0 mg/dL Normal 7.0-18.0 [facility] Comment on above: Performed By: #### C MP, LIPID #### [facility] [address] [place] [address] Dr. Alex Rios Urea nitrogen/Creatinine [Mass ratio] 9.7 mg/mg Normal [facility] Comment on above: Performed By: #### C MP, LIPID #### [facility] [address] [place] [address] Dr. Alex Rios UA RANDOM W/MICROSCOPICon BACTERIA NONE SEEN Normal NONE SEEN [facility] Comment on above: Performed By: #### U AMIC #### [facility] [address] [place] [address] Dr. Alex Rios Bilirubin Ql (U) Negative Normal NEGATIVE [facility] Comment on above: Performed By: #### U AMIC #### [facility] [address] [place] [address] Dr. Alex Rios CAST NONE SEEN Normal NONE SEEN [facility] Comment on above: Performed By: #### U AMIC #### [facility] [address] [place] [address] [address] Alex Rios Clarity (U) CLEAR Normal CLEAR [facility] Comment on above: Performed By: #### U AMIC #### [facility] [address] [place] [address] [address] Alex Rios Color (U) YELLOW Normal YELLOW [facility] Comment on above: Performed By: #### U AMIC #### [facility] [address] [place] [address] [address] Alex Rios Crystals LM Nom (Urine sed) NONE SEEN Normal NONE SEEN [facility] Comment on above: Performed By: #### U AMIC #### [facility] [address] [place] [address] Dr. Alex Rios Epithelial cells LM Ql (Urine sed) FEW Abnormal NONE SEEN /RARE [facility] Comment on above: Performed By: #### U AMIC #### [facility] [address] [place] [address] [address] Alex Rios Glucose Ql (U) Negative Normal NEGATIVE [facility] Comment on above: Performed By: #### U AMIC #### [facility] [address] [place] [address] [address] Alex Rios Hemoglobin Ql (U) Negative Normal NEGATIVE [facility] Comment on above: Performed By: #### U AMIC #### [facility] [facility] [address] [address] [address] Alex Rios Ketones Ql (U) Negative Normal NEGATIVE [facility] Comment on above: Performed By: #### U AMIC #### [facility] [address] [address] [address] Alex Rios LEUKOCYTES Negative Normal NEGATIVE [facility] Comment on above: Performed By: #### U AMIC #### [facility] [address] [place] [address] Dr. Alex Rios MUCOUS MODERATE Abnormal NONE SEEN [facility] Comment on above: Performed By: #### U AMIC #### [facility] [address] [place] [address] Dr. Alex Rios Nitrite Ql (U) Negative Normal NEGATIVE [facility] Comment on above: Performed By: #### U AMIC #### [facility] [address] [place] [address] Dr. Alex Rios pH (U) 6.0 [pH] Normal 5-9 [facility] Comment on above: Performed By: #### U AMIC #### [facility] [address] [place] [address] Dr. Alex Rios RBC NONE SEEN Abnormal 0-2 [facility] Comment on above: Performed By: #### U AMIC #### [facility] [address] [place] [address] Dr. Alex Rios SPEC GRAVITY 1.025 Normal 1.005-<=1.025 [facility] Comment on above: Performed By: #### U AMIC #### [facility] [address] [place] [address] Dr. Alex Rios UA PROTEIN Negative Normal NEGATIVE/ TRACE [facility] Comment on above: Performed By: #### U AMIC #### [facility] [address] [place] [address] Dr. Alex Rios Urobilinogen Qn (U) 0.2 {Mac'U}/dL Normal 0.2 - 1. 0 [facility] Comment on above: Performed By: #### U AMIC #### [facility] [address] [place] [address] Dr. Alex Rios WBC NONE SEEN Normal NONE SEEN [facility] Comment on above: Performed By: #### U AMIC #### [facility] [address] [place] [address] Dr. Alex Rios Vital Signs Date Time Vital Sign Value Performing Clinician Facility 12-18-2023 10:42-0400 Body height 191.8 cm Sloane Cruz BAIT TIER Work Phone: [facility] 12-18-2023 10:42-0400 Body mass index (BMI) [Ratio] 25.75 kg/m2 Sloane Cruz BAIT TIER Work Phone: [facility] 12-18-2023 10:42-0400 Body temperature 97.5 [degF] Sloane Aichholz BAIT TIER Work Phone: [facility] 12-18-2023 10:42-0400 Body weight 94.71 kg Sloane Aichholz BAIT TIER Work Phone: [facility] 12-18-2023 10:42-0400 Diastolic blood pressure 70 mm[Hg] Sloane Aichholz BAIT TIER Work Phone: [facility] 12-18-2023 10:42-0400 Heart rate 94 /min Sloane Aichholz BAIT TIER Work Phone: [facility] 12-18-2023 10:42-0400 Respiratory rate 22 /min Sloane Aichholz BAIT TIER Work Phone: [facility] 12-18-2023 10:42-0400 SaO2% (BldA) [Mass fraction] 98 % Sloane Aichholz BAIT TIER Work Phone: [facility] 12-18-2023 10:42-0400 Systolic blood pressure 110 mm[Hg] Sloane Aichholz BAIT TIER Work Phone: [facility] 06-15-2022 10:08-0500 Diastolic blood pressure 78 mm[Hg] Sloane Aichholz Work Phone: [facility] 06-15-2022 10:08-0500 Heart rate 76 /min Sloane Aichholz Work Phone: [facility] 06-15-2022 10:08-0500 Respiratory rate 16 /min Sloane Aichholz Work Phone: [facility] 06-15-2022 10:08-0500 SaO2% (BldA) [Mass fraction] 99 % Sloane Aichholz Work Phone: [facility] 06-15-2022 10:08-0500 Systolic blood pressure 136 mm[Hg] Sloane Aichholz Work Phone: [facility] 06-15-2022 08:21-0500 Body height 191.77 cm Sloane Aichholz Work Phone: [facility] 06-15-2022 08:21-0500 Body mass index (BMI) [Ratio] 27.7 kg/m2 Sloane Aichholz Work Phone: [facility] 06-15-2022 08:21-0500 Body weight 102.05 kg Sloane Aichholz Work Phone: [facility] 06-15-2022 07:42-0500 Body temperature 98.4 [degF] Sloane Aichholz Work Phone: [facility] 06-01-2022 10:10-0500 Diastolic blood pressure 75 mm[Hg] Sloane Aichholz Work Phone: [facility] 06-01-2022 10:10-0500 Heart rate 67 /min Sloane Aichholz Work Phone: [facility] 06-01-2022 10:10-0500 Respiratory rate 16 /min Sloane Aichholz Work Phone: [facility] 06-01-2022 10:10-0500 SaO2% (BldA) [Mass fraction] 97 % Sloane Aichholz Work Phone: [facility] 06-01-2022 10:10-0500 Systolic blood pressure 145 mm[Hg] Sloane Aichholz Work Phone: [facility] 06-01-2022 08:29-0500 Body height 191.77 cm Sloane Aichholz Work Phone: [facility] 06-01-2022 08:29-0500 Body mass index (BMI) [Ratio] 27.7 kg/m2 Sloane Aichholz Work Phone: [facility] 06-01-2022 08:29-0500 Body weight 102.05 kg Sloane Aichholz Work Phone: [facility] 06-01-2022 07:19-0500 Body temperature 98.1 [degF] Sloane Nancy Work Phone: [facility] Encounters Encounter Date Encounter Type Care Provider Facility Start: 03-25-2024 End: 03-25-2024 Refill Sloane Nancy BAIT TIER Work Phone: [facility] Comment on above: Benign paroxysmal ve rtigo, bilateral Start: 03-05-2024 End: 03-05-2024 Refill Sloane Nancy BAIT TIER Work Phone: [facility] Comment on above: Primary hypertension (CMS/HCC); Mixed hyperlipidemia (CMS/HCC) Start: 03-05-2024 End: 03-05-2024 Telephone encounter Sloane Cruz BAIT TIER Work Phone: [facility] Start: 12-18-2023 End: 12-18-2023 Patient encounter procedure Sloane Cruz BAIT TIER Work Phone: [facility] Comment on above: Encounter for subseq uent annual wellness visit (AWV) in Medicare patient (Primary Dx); Emphysema, unspecified (CMS/HCC); Nicotine dependence, cigarettes, with other nicotine-induced disorders; Screening for lung cancer; Mixed hyperlipidemia (CMS/HCC); Primary hypertension (CMS/HCC); Benign paroxysmal vertigo, bilateral Start: 12-18-2023 End: 12-18-2023 ambulatory SLOANE NANCY Not Available Start: 09-20-2022 ambulatory MEDICAID BILLER SLOANE CRUZ Facil ity:[facility] Start: 06-15-2022 End: 06-15-2022 ambulatory Sloane Rayna Cruz Facility:[facility] Start: 06-15-2022 End: 06-15-2022 Admission to same day surgery center Sloane Cruz Work Phone: [facility] [place] Start: 06-15-2022 End: 06-15-2022 ambulatory Sloane Rayna Cruz Work Phone: [facility] Work Phone: Start: 06-01-2022 End: 06-01-2022 ambulatory Valeriy Lima Facility:[facility] Start: 06-01-2022 End: 06-01-2022 Admission to same day surgery center Sloane Nancy Work Phone: [facility] [place] Start: 06-01-2022 End: 06-01-[address] Nancy Work Phone: [facility] Work Phone: Start: 11-21-2021 End: 11-22-2021 ambulatory TREMAYNE HINKLE NANCY Facility:[facility] Start: 11-15-2021 End: 11-16-2021 ambulatory MEDICAID BILLER SLOANE NANCY Facility:[facility] Procedures Date Procedure Procedure Detail Performing Clinician Start: 06-15-2022 Phacoemulsification of cataract with intraocular lens implantation Sloane Nancy Work Phone: Start: 06-01-2022 Phacoemulsification of cataract with intraocular lens implantation Sloane Nancy Work Phone: Start: 11-15-2021 PSA screening TREMAYNE HOLLINGSWORTHA ERICLorenzo Comment on above: Performed By: #### P [facility] #### [facility] [address] [place] [address] Dr. Alex Rios Start: 09-01-2015 Colonoscopy Sloane bethea BAIT TIER Work Phone: Plan of Treatment Date Care Activity Detail Author Start: 08-31-2025 Screening for malign ant neoplasm of colon [facility] Start: 12-17-2024 Medicare Annual Wellness (AWV) Medicare Annual Wellness (AWV) [facility] Start: 12-17-2024 Pneumococcal Vaccine : 65+ Years (1 of 1 - PCV) Pneumococcal Vaccine: 65+ Years (1 of 1 - PCV) [facility] Comment on above: Postponed from 12/12 (Patient Refused) Start: 08-27-2025 Pneumococcal Vaccine : 65+ Years (1 of 2 - PCV) Pneumococcal Vaccine: 65+ Years (1 of 2 - PCV) [facility] Comment on above: Postponed from 12/12 (Patient Refused) Start: 02-12-2024 Influenza vaccination Influenza Vacc ine (#1) [facility] Comment on above: Postponed from 12/22 (Patient Refused) Start: 12-23-2023 Influenza vaccination Influenza Vacc ine (#1) [facility] Start: 12-18-2023 End: 12-17-2024 CT Chest for screening WO contrast CT lung screening low dose Imaging Routine Nicotine dependence, cigarettes, with other nicotine-induced disorders Screening for lung cancer Expected: 12/18/2023 (Approximate), Expires: 12/17/2024 [facility] Work Phone: Comment on above: Expected: 12/18/2023 (Approximate), Expires: 12/17/2024 Start: 06-15-2022 End: 06-15-2022 [facility] Start: 06-01-2022 End: 06-01-2022 [facility] Start: 1955 Screening for malign ant neoplasm of colon [facility] Patient referral [facility] Work Phone: Immunizations Immunization Date Immunization Notes Care Provider Fa cility 08-24-2020 COVID-19 mRNA-1273 (Moderna) Sloane Cruz Work Phone: [facility] 07-27-2020 COVID-19 mRNA-1273 (Moderna) Sloane Cruz Work Phone: [facility] Payers Date Payer Category Payer Medicaid [id number] 2023 Medicaid [id number] 2022 Self-pay [id number] 2019 Medicare [employer] MEDICARE UHC DUAL COMPLETE [id number] 2019-Present [address] [place] [address] [id number] 2019 Medicare (Managed Care) [facility]IC[facility] [id number] 1959 Medicaid [id number] 1959 Private Health Insurance [id number] 1959 Unknown [id number] 1955 Unknown [id number] 1955 Unknown [id number] 1955 Unknown [id number] 1955 Unknown [id number] Unknown [id number] Unknown [id number] Social History Date Type Detail Facility Start: 06-01-2022 End: 06-15-2022 Tobacco smoking status NHIS Smoker (finding) [facility] Start: 1955 Sex Assigned At Male F [facility] Start: 12-18-2023 [facility] History of tobacco use Cigarette Smoker N [facility] Start: 12-18-2023 Tobacco use and exposure Smokeless tobacco non-user [facility] Start: 12-18-2023 History of Social function [facility] Start: 12-18-2023 Tobacco use panel [facility] Start: 1955 Sex assigned at Not on file N [facility] Medical Equipment Procedure Code Equipment Code Equipment Origin al Text Equipment Identifier Dates Phacoemulsification of cataract with intraocular lens implantation Posterior-chamber intraocular lens, pseudophakic [id number] [facility] Start: 06-01-2022 Goals Date Patient Goal Desired Activity /State Clinical Notes 12-18-2023 to 03-25-2024 Telephone Encounter - Sloane Cruz NP - 03/25/2024 12:26 PM ESTTelephone Encounter - Sloane Cruz NP - 03/25/2024 12:26 PM ESTTelephone Encounter - Sloane Cruz NP - 03/05/2024 12:44 PM EST Note Date & Type Note Facility 03-25-2024 Telephone encounter Note Please call pt to schedule an appt with me for 05/2024 LA [facility] 03-25-2024 Miscellaneous Notes Please call pt to schedule an appt with me for 05/2024 LA documented in this encounter [facility] 03-05-2024 Miscellaneous Notes Pt needs a fu appt in May 2024 please call to schedule [place] documented in this encounter [facility] 03-05-2024 Telephone encounter Note Pt needs a fu appt in May 2024 please call to schedule [place] [facility] 12-18-2023 History of Presen t illness Narrative Associated Problem(s): Encounter for subsequent annual wellness visit (AWV) in Medicare patient Reviewed Ht/Wt/BMI Recommend eye exam yearly Recommend dental exams twice a year Recommend pneumonia and flu shots Exercises is recommended most days of the week (appropriate as chronic conditions allow) Follow up yearly and prn Associated Problem(s): Screening for lung cancer Patient meets requirements for low dose CT scan for lung cancer screening: age 55-80, patient is a current smoker or has quit in the last 15 years. Smoking history is > or equal to 30 pack-year. If needed the patient is able or willing to receive treatment. The patient is not currently exhibiting any s/s of lung cancer. We have discussed the benefits as well as harms of screening, follow up testing if needed, false positive rates. We have also discussed that this type of CT scan has less radiation exposure than a traditional lung CT scan. We have also discussed that it is important to follow with annual screening for this. The patient has also been counseled on the importance of smoking cessation. Associated Problem(s): Benign paroxysmal vertigo, bilateral Stable at this time and less freq Associated Problem(s): Primary hypertension (CMS/HCC) At goal Reviewed meds No dose change Images from the original note were not included. Collin More is a 68 y.o. male presents with chief complaint of No chief complaint on file. HPI: Here for AWV: Diet: balance Activity: age appropriate Concerns: none Hypertension This is a chronic problem. The current episode started more than 1 year ago. The problem is unchanged. The problem is controlled. Pertinent negatives include no blurred vision, chest pain, orthopnea, peripheral edema or shortness of breath. Risk factors for coronary artery disease include dyslipidemia, smoking/tobacco exposure and sedentary lifestyle. Past treatments include KLAUS inhibitors. The current treatment provides significant improvement. There are no compliance problems. SUBJECTIVE: MEDICATIONS: Current Outpatient Medications Medication Instructions aspirin 81 mg, Oral, Daily lisinopril 10 mg, Oral, Daily meclizine (ANTIVERT) 25 mg, Oral, Every 12 hours PRN pravastatin (PRAVACHOL) 40 mg, Oral, Nightly ALLERGIES: Not on File REVIEW OF SYMPTOMS: Review of Systems Constitutional: Negative for activity change, appetite change and unexpected weight change. HENT: Negative for ear pain, nosebleeds, sneezing, trouble swallowing and voice change. Eyes: Negative for blurred vision, pain, discharge and visual disturbance. Respiratory: Negative for apnea, chest tightness, shortness of breath and wheezing. Cardiovascular: Negative for chest pain, orthopnea and leg swelling. Gastrointestinal: Negative for abdominal distention, blood in stool, constipation and diarrhea. Genitourinary: Negative for decreased urine volume, difficulty urinating, dysuria and hematuria. Skin: Negative for color change. Neurological: Negative for dizziness, tremors and seizures. Psychiatric/Behavioral: Negative for agitation, decreased concentration, hallucinations, self-injury and suicidal ideas. The patient is not nervous/anxious. Hematological: Negative for adenopathy. Does not bruise/bleed easily. Endocrine: Negative for cold intolerance, heat intolerance, polydipsia and polyuria. Allergic/Immunologic: Negative for environmental allergies and food allergies. PAST MEDICAL HISTORY Past Medical History: Diagnosis Date Benign paroxysmal positional vertigo due to bilateral vestibular disorder 04/25/2023 No past surgical history on file. family history is not on file. OBJECTIVE: Visit Vitals BP 110/70 (BP Location: Left arm, Patient Position: Sitting, BP Cuff Size: Adult long) Pulse 94 Temp 97.5 F (Temporal) Resp 22 Ht 6' 3.5 Wt 208 lb 12.8 oz SpO2 98% BMI 25.75 kg/m BSA 2.25 m Physical Exam Vitals and nursing note reviewed. Constitutional: Appearance: Normal appearance. HENT: Head: Normocephalic. Right Ear: External ear normal. Left Ear: External ear normal. Nose: Nose normal. No congestion or rhinorrhea. Mouth/Throat: Mouth: Mucous membranes are moist. Pharynx: Oropharynx is clear. No oropharyngeal exudate or posterior oropharyngeal erythema. Eyes: Extraocular Movements: Extraocular movements intact. Conjunctiva/sclera: Conjunctivae normal. Neck: Vascular: No carotid bruit. Cardiovascular: Rate and Rhythm: Normal rate and regular rhythm. Pulses: Normal pulses. Heart sounds: Normal heart sounds. Pulmonary: Effort: Pulmonary effort is normal. Breath sounds: Normal breath sounds. Abdominal: General: Bowel sounds are normal. Palpations: Abdomen is soft. Musculoskeletal: Cervical back: Neck supple. Right lower leg: No edema. Left lower leg: No edema. Lymphadenopathy: Cervical: No cervical adenopathy. Skin: General: Skin is warm and dry. Capillary Refill: Capillary refill takes 2 to 3 seconds. Neurological: General: No focal deficit present. Mental Status: He is alert. Psychiatric: Mood and Affect: Mood normal. Behavior: Behavior normal. Thought Content: Thought content normal. Judgment: Judgment normal. ASSESSMENT AND PLAN: No follow-ups on file. Problem List Items Addressed This Visit Benign paroxysmal vertigo, bilateral Stable at this time and less freq Primary hypertension (CMS/HCC) At goal Reviewed meds No dose change Mixed hyperlipidemia (CMS/HCC) Emphysema, unspecified (CMS/HCC) Recommend quitting smoking Nicotine dependence, cigarettes, with other nicotine-induced disorders - Primary Relevant Orders CT lung screening low dose Screening for lung cancer Patient meets requirements for low dose CT scan for lung cancer screening: age 55-80, patient is a current smoker or has quit in the last 15 years. Smoking history is > or equal to 30 pack-year. If needed the patient is able or willing to receive treatment. The patient is not currently exhibiting any s/s of lung cancer. We have discussed the benefits as well as harms of screening, follow up testing if needed, false positive rates. We have also discussed that this type of CT scan has less radiation exposure than a traditional lung CT scan. We have also discussed that it is important to follow with annual screening for this. The patient has also been counseled on the importance of smoking cessation. Relevant Orders CT lung screening low dose Encounter for subsequent annual wellness visit (AWV) in Medicare patient Reviewed Ht/Wt/BMI Recommend eye exam yearly Recommend dental exams twice a year Recommend pneumonia and flu shots Exercises is recommended most days of the week (appropriate as chronic conditions allow) Follow up yearly and prn Associated Problem(s): Emphysema, unspecified (CMS/HCC) Recommend quitting smoking documented in this encounter [facility] Evaluation note No assessment inform ation available [facility] Work Phone: Evaluation note Diagnosis Encounter for subsequent annual wellness visit (AWV) in Medicare patient- Primary Emphysema, unspecified (CMS/HCC) Nicotine dependence, cigarettes, with other nicotine-induced disorders Screening for lung cancer Mixed hyperlipidemia (CMS/HCC) Mixed hyperlipidemia Primary hypertension (CMS/HCC) Unspecified essential hypertension Benign paroxysmal vertigo, bilateral Primary hypertension (CMS/HCC) Unspecified essential hypertension Mixed hyperlipidemia (CMS/HCC) Mixed hyperlipidemia documented in this encounter [facility] HealthcareEvaluation note* Diagnosis Encounter for subsequent annual wellness visit (AWV) in Medicare patient- Primary Emphysema, unspecified (CMS/HCC) Nicotine dependence, cigarettes, with other nicotine-induced disorders Screening for lung cancer Mixed hyperlipidemia (CMS/HCC) Mixed hyperlipidemia Primary hypertension (CMS/HCC) Unspecified essential hypertension Benign paroxysmal vertigo, bilateral Benign paroxysmal vertigo, bilateral documented in this encounter [facility] Healthcare[facility] note* Diagnosis Encounter for subsequent annual wellness visit (AWV) in Medicare patient- Primary Emphysema, unspecified (CMS/HCC) Nicotine dependence, cigarettes, with other nicotine-induced disorders Screening for lung cancer Mixed hyperlipidemia (CMS/HCC) Mixed hyperlipidemia Primary hypertension (CMS/HCC) Unspecified essential hypertension Benign paroxysmal vertigo, bilateral documented in this encounter [facility] Discharge instructions Additional Instructions POST CATARACT SURGERY [...] for your ride home. Some people are light- sensitive for a few weeks following surgery. Wear [...] worsening of your eyesight. Please call your reverse logistics analyst during normal business hours. If after business hours call Dr. Valeriy Lima at his cell [phone] or his office [phone].[facility] Work Phone: Hospital Discharge instructions Additional Instructions POST CATARACT [...] for your ride home. Some people are light- sensitive for a few weeks following surgery. Wear [...] worsening of your eyesight. Please call your reverse logistics analyst during normal business hours. If after business hours call Dr. Valeriy Lima at his cell [phone] or his office [phone].[facility] Work Phone: Chief Complaint and Reason for Visit Chief Complaint Right Eye Cataract Chief Complaint Right Eye Cataract Left Eye Cataract Family History Relationship Condition Age at Onset Recorded Date/T maurizio Not Specified Malignant neoplasm Unknown brother Diabetes mellitus Unknown Advance Directives Advance Directive Response Recorded Date/ Time Advance Directives No June 01, 2022 7:06am Summary Purpose Reason for Referral Specialty Diagnoses / Procedures Referred By Contphillip t Referred To Contact Radiology Diagnoses Nicotine dependence, cigarettes, with other nicotine-induced disorders Screening for lung cancer Procedures CT lung screening low dose Sloane Cruz NP [address] [place] [address] [facility] Scheduling [address] [address] Referral ID Status Reason Start Date Expiration Date V isits Requested Visits Authorized [id number] Pending Review 12/18/2023 06/15/2024 1 1 Additional Source Comments Care Teams (unrecognized sec tion and content) Team Status: Inactive Member Role Status Dates Valeriy Lima MD Attending Provider Active Sloane Cruz Primary Care Provider Active Team Status: Active Member Role Status Dates Sloane Cruz Primary Care Provider Active Print Decorator Relationship Specialty Start Date End Date Jagjit Vargas MD [address] [place] [phone] PCP - General Family Medicine 12/18/23 Sloane Cruz NP [address] [place] [phone] Nurse Practitioner Family Medicine 12/18/23 Print Decorator Relationship Specialty Start Date End Date Jagjit Vargas MD [address] [place] [phone] PCP - General Family Medicine 12/18/23 Sloane Cruz NP [address] [place] [phone] Nurse Practitioner Family Medicine 12/18/23 Print Decorator Relationship Specialty Start Date End Date Jagjit Vargas MD [address] [place] [phone] PCP - General Family Medicine 12/18/23 Sloane Cruz NP [address] [place] [phone] Nurse Practitioner Family Medicine 12/18/23 Print Decorator Relationship Specialty Start Date End Date Jagjit Vargas MD [address] [place] [phone] PCP - General Family Medicine 12/18/23 Sloane Cruz NP [address] [place] [phone] Nurse Practitioner Family Medicine 12/18/23 (unrecognized sect ion and content) No Status Records FoundNo Status Records FoundNo Status Records Found INFORMATION SOURCE (unrecogn ized section and content) DATE CREATED AUTHOR 06/22/2022 [facility] DATE CREATED AUTHOR AUTHOR'S ORGANIZ ATION 09/29/2022 [facility] DATE CREATED AUTHOR AUTHOR'S ORGANIZ ATION 12/20/2023 [facility] EPIC Reason for Visit (unrecogniz ed section and content) Reason Comments Med Refill FOR RECORDS PERTAINING TO PATIENTS WHO ARE [...] BE BASED ON THE PRIMARY CLINICAL RECORDS. [id number] provides no warranty or guarantee of the accuracy or completeness of information in this document.
[2024-07-01 10:38] LABS: Bilirubin Urine NEGATIVE (NEGATIVE); Blood Urine NEGATIVE (NEGATIVE); Clarity Urine CLEAR (CLEAR); Color Urine YELLOW (YELLOW); Glucose Urine UA NEGATIVE (NEGATIVE); Ketones Urine NEGATIVE (NEGATIVE); Leukocyte Esterase Urine NEGATIVE (NEGATIVE); Nitrite Urine NEGATIVE (NEGATIVE); Protein Urine NEGATIVE (NEG/TRACE); Specific Gravity Urine 1.025 (1.005-1.025); pH Urine 5.5 (5.0-9.0)
[2024-07-01 10:39] LABS: Basophils Percent Auto 0.5 % (0.2-2.0); Eosinophils Absolute Auto 0.3 10^3/uL (0.0-0.7); Eosinophils Percent Auto 3.3 % (0.9-7.0); Hematocrit 43.6 % (42.0-54.0); Hemoglobin 14.3 g/dL (14.0-18.0); Immature Granulocytes Abs Auto 0.02 10^3/uL (0.00-0.03); Immature Granulocytes Pct Auto 0.3 % (0.0-0.5); Lymphocytes Absolute Auto 2.2 10^3/uL (1.2-3.8); Lymphocytes Percent Auto 28.2 % (20.5-60.0); Mean Corpuscular HGB Conc 32.8 g/dL (29.9-35.2); Mean Corpuscular Hemoglobin 30.4 pg (25.9-34.0); Mean Corpuscular Volume 92.6 fL (80.0-94.0); Mean Platelet Volume 9.3 fL (9.5-13.5); Monocytes Absolute Auto 0.8 10^3/uL (0.3-0.8); Monocytes Percent Auto 10.1 % (1.7-12.0); Neutrophils Absolute Auto 4.6 10^3/uL (1.4-6.5); Neutrophils Percent Auto 57.6 % (43.0-75.0); Platelet Count 292 10^3/uL (150-450); Red Blood Count 4.71 10^6/uL (4.70-6.10); Red Cell Distribution Width 14.2 % (11.0-15.0); White Blood Count 7.9 10^3/uL (4.0-11.0)
[2024-07-01 10:39] LABS: Urine Microscopic Indicated NO
[2024-07-01 10:50] LABS: Erythrocyte Sedimentation Rate 30 mm/hr (<=20)
[2024-07-01 11:51] LABS: Alanine Aminotransferase 16 U/L (16-63); Albumin Globulin Ratio 0.9; Albumin Level 3.4 g/dL (3.4-5.0); Alkaline Phosphatase 117 U/L (46-116); Amylase 33 U/L (25-115); Anion Gap 11.9; Aspartate Amino Transferase 13 U/L (15-37); BUN Creatinine Ratio 9.5; Bilirubin Total 0.3 mg/dL (0.2-1.0); C Reactive Protein <0.50 mg/dL (<=0.50); Calcium 9.1 mg/dL (8.5-10.1); Carbon Dioxide 26.9 mmol/L (21.0-32.0); Chloride 106 mmol/L (98-107); Estimated GFR (African America >60 (>=60 mL/min/1.73m^2); Estimated GFR (Non-African Ame >60 (>=60 mL/min/1.73m^2); Globulin 3.8 g/dL; Glucose 100 mg/dL (74-106); Potassium 3.8 mmol/L (3.5-5.1); Sodium 141 mmol/L (136-145); Total Protein 7.2 g/dL (6.4-8.2)
== END 2024-07-01 10:20 | disposition home or self-care (01) ==
LOC: LAB 10:23
PROVIDERS: PCP Nurse Practitioner; Visit Provider Nurse Practitioner
DX: R19.7 Diarrhea, unspecified (principal); R10.13 Epigastric pain; F17.218 Nicotine dependence, cigarettes, with other nicotine-induced disorders
CPT/HCPCS: 36415; 80053; 81003; 82150; 83690; 85025; 85652; 86140

== ENCOUNTER 2024-07-09 07:55 | Outpatient (OUT) | payer MEDICARE, MEDICAID, SELFPAY ==
--- NOTE | 2024-07-09 07:59 | CT_ITS ---
The [address] [address] Patient Name: CRISTAL LANGLEY MRN: [id number] date: 1955 Sex: M Assigned Patient Location: CT Current Patient Location: CT Accession/Order Number: [id number] Exam Date: 07/09/2024 11:49 Report Date: 07/09/2024 11:59 At the request of: ARIN CRENSHAW NP Procedure: CT abdomen pelvis w con CT ABDOMEN AND PELVIS WITH INTRAVENOUS CONTRAST: CLINICAL HISTORY: Diarrhea, Epigastric Pain, Weight Loss COMPARISON: None TECHNIQUE: Spiral images were obtained through the abdomen and pelvis following the administration of intravenous contrast. This CT exam was performed using one or more following dose reduction techniques: Automated exposure control, adjustment of the mA and/or kV according to patient size, or use of iterative reconstruction technique. FINDINGS: Lung Bases: [No acute process.] Organs:Liver cysts. Gallbladder CBD pancreas spleen portal vein and adrenal glands all demonstrate no acute process. No enhancing renal mass or hydronephrosis. Abdominal aorta appears normal in caliber with moderate calcification.[ GI: Stomach is grossly unremarkable. Multiple dilated small bowel loops are identified which appears to be due to a heterogeneous enhancing mass involving the ileocecal region measuring approximately 5.1 x 4.8 x 3.2 cm appears difficult to say whether this mass is arising from the cecum or terminal ileum. There appears to be abnormal wall thickening involving the terminal ileum proximal to the mass. Distal colon appears decompressed without focal abnormality. Pelvis:[Urinary bladder is grossly unremarkable. Prostate gland is normal in size.] Peritoneum/Retroperitoneum:No free air or free fluid. Prominent right lower quadrant lymph nodes.[ Abd wall/Bones:Abdominal wall demonstrates no acute findings. Osseous structures demonstrate degenerative change.[ CT/CT abdomen pelvis w con IMPRESSION: Evidence of small bowel obstruction due to a mass involving the ileocecal region measuring 5.1 x 4.8 x 3.2 cm. There is associated proximal abnormal wall thickening involving the terminal ileum. It is difficult to say whether this mass originates from the cecum or possibly terminal ileum. Surgical consultation is recommended. Malignancy is suspected. FINDINGS OF THIS REPORT WERE GIVEN TO THE RADIOLOGY STAFF FOR EXPEDITED RELAY OF RESULTS TO THE REFERRING CLINICIAN. Impression dictated by: Kendall Gross Jr., Luis [email or web address]/09/2024 11:59 AM Dictation Location: [place] [address] Electronically authenticated by: [id number] Y Date: 07/09/2024 11:59
--- OUTSIDE RECORDS SUMMARY | 2024-07-09 08:16 | XMS_ITS | CCD ---
Author Organization [facility] Care Team Providers Care [address] Service Name Role Phone MD Valeriy Lima Attending Provider Sloane Cruz Primary Care Provider [phone] Sloane Cruz Primary Care Unavailable Valeriy Lima Attending Unavailable Valeriy Lima Admitting Unavailable Valeriy Lima Attending Unavailable Valeriy Lima Admitting Unavailable Nancy Sloane J Primary Care Unavailable AICHHOLLorenzo, WATCH INSPECTOR SLOANE Primary Care Unavailable HORACIO CEE Admitting Unavailable HORACIO CEE Attending Unavailable AICHHOLZ, WATCH INSPECTOR SLOANE Primary Care Unavailable AICHHOLZ, WATCH INSPECTOR SLOANE Consulting Unavailable AICHHOLLorenzo, WATCH INSPECTOR SLOANE Attending Unavailable AICHHOLLorenzo, WATCH INSPECTOR SLOANE Admitting Unavailable DR ANTOINETTE HOLLINGSWORTH Consulting Unavailable AICHHOLZ, WATCH INSPECTOR SLOANE Primary Care Unavailable AICHHOLZ, WATCH INSPECTOR SLOANE Consulting Unavailable AICHHOLZ, WATCH INSPECTOR SLOANE Attending Unavailable AICHHOLZ, WATCH INSPECTOR SLOANE Admitting Unavailable Jagjit Vargas MD Primary Care Provider [phone] Nancy INSTALLER SOFT TOP, Sloane Unavailable SLOANE CRUZ Attending Unavailable DARRICK CRUZA Attending Unavailable Medications Current Medications Medication Drug [...] 09-20-2022 BASO # 0.1 103/ul Normal 0.0-0.1 [facility] Comment on above: Performed By: #### C BC #### [facility] [address] [address] [address] Alex Rios Basophils/100 WBC (Bld) 0.9 % Normal 0.2-2.0 [facility] Comment on above: Performed By: #### C BC #### [facility] [address] [place] [address] Dr. Alex Rios EO # 0.5 103/ul Normal 0.0-0.7 [facility] Comment on above: Performed By: #### C BC #### [facility] [address] [place] [address] Dr. Alex Rios Eosinophils/100 WBC (Bld) 5.9 % Normal 0.9-7.0 [facility] Comment on above: Performed By: #### C BC #### [facility] [address] [place] [address] Dr. Alex Rios Erythrocyte distribution width (RBC) [Ratio] 13.2 % Normal 11.0-15.0 [facility] Comment on above: Performed By: #### C BC #### [facility] [address] [place] [address] Dr. Alex Rios Hematocrit (Bld) [Volume fraction] 39.1 % Critically low 42.0-54.0 [facility] Comment on above: Performed By: #### C BC #### [facility] [address] [place] [address] Dr. Alxe Rios Hemoglobin (Bld) [Mass/Vol] 13.5 g/dL Critically low 14.0-18.0 [facility] Comment on above: Performed By: #### C BC #### [facility] [address] [place] [address] Dr. Alex Rios IG # 0.01 10e3/ul Normal 0.00-0.03 [facility] Comment on above: Performed By: #### C BC #### [facility] [address] [place] [address] Dr. Alex Rios IG % 0.1 % Normal 0.0-0.5 [facility] Comment on above: Performed By: #### C BC #### [facility] [address] [place] [address] Dr. Alex Rios LYMPH # 3.1 103/ul Normal 1.2-3.8 [facility] Comment on above: Performed By: #### C BC #### [facility] [address] [place] [address] Dr. Alex Rios Lymphocytes/100 WBC (Bld) 37.7 % Normal 20.5-60.0 [facility] Comment on above: Performed By: #### C BC #### [facility] [address] [place] [address] Dr. Alex Rios MANUAL DIFF REQ NO Normal [facility] Comment on above: Performed By: #### C BC #### [facility] [address] [place] [address] Dr. Alex Rios MCH (RBC) [Entitic mass] 31.9 pg Normal 25.9-34.0 [facility] Comment on above: Performed By: #### C BC #### [facility] [address] [place] [address] Dr. Alex Rios MCHC (RBC) [Mass/Vol] 34.5 g/dL Normal 29.9-35.2 [facility] Comment on above: Performed By: #### C BC #### [facility] [address] [place] [address] Dr. Alex Rios MCV (RBC) [Entitic vol] 92.4 fL Normal 80.0-94.0 [facility] Comment on above: Performed By: #### C BC #### [facility] [address] [place] [address] Dr. Alex Rios MONO # 0.8 103/ul Normal 0.3-0.8 [facility] Comment on above: Performed By: #### C BC #### [facility] [address] [place] [address] Dr. Alex Rios Monocytes/100 WBC (Bld) 9.8 % Normal 1.7-12.0 [facility] Comment on above: Performed By: #### C BC #### [facility] [address] [place] [address] Dr. Alex Rios NEUT # 3.8 103/ul Normal 1.4-6.5 [facility] Comment on above: Performed By: #### C BC #### [facility] [address] [address] [address] Alex Rios Neutrophils/100 WBC (Bld) 45.6 % Normal 43.0-75.0 [facility] Comment on above: Performed By: #### C BC #### [facility] [address] [address] [address] Alex Rios Platelet mean volume (Bld) [Entitic vol] 10.7 fL Normal 9.5-13.5 [facility] Comment on above: Performed By: #### C BC #### [facility] [address] [address] [address] Alex Rios PLT 242 103/ul Normal 150-450 [facility] Comment on above: Performed By: #### C BC #### [facility] [address] [place] [address] Dr. Alex Rios RBC 4.23 106/ul Critically low 4.70-6.10 [facility] Comment on above: Performed By: #### C BC #### [facility] [address] [address] [address] Alex Rios WBC 8.2 103/ul Normal 4.0-11.0 [facility] Comment on above: Performed By: #### C BC #### [facility] [address] [place] [address] LUNG CANCER SCREENINGon [...] ANTOINETTE HOLLINGSWORTH Date: 2021-11-21 17:44 Normal [facility] CBC AUTO DIFFon 11-15-2021 BASO # 0.0 103/ul Normal 0.0-0.1 [facility] Comment on above: Performed By: #### C BC #### [facility] [address] [place] [address] Dr. Alex Rios Basophils/100 WBC (Bld) 0.6 % Normal 0.2-2.0 [facility] Comment on above: Performed By: #### C BC #### [facility] [address] [address] [address] Alex Rios EO # 0.3 103/ul Normal 0.0-0.7 [facility] Comment on above: Performed By: #### C BC #### [facility] [address] [place] [address] Dr. Alex Rios Eosinophils/100 WBC (Bld) 4.9 % Normal 0.9-7.0 [facility] Comment on above: Performed By: #### C BC #### [facility] [address] [address] [address] Alex Rios Erythrocyte distribution width (RBC) [Ratio] 13.8 % Normal 11.0-15.0 [facility] Comment on above: Performed By: #### C BC #### [facility] [address] [place] [address] Dr. Alex Rios Hematocrit (Bld) [Volume fraction] 42.4 % Normal 42.0-54.0 [facility] Comment on above: Performed By: #### C BC #### [facility] [address] [place] [address] Dr. Alex Rios Hemoglobin (Bld) [Mass/Vol] 13.8 g/dL Critically low 14.0-18.0 [facility] Comment on above: Performed By: #### C BC #### [facility] [address] [place] [address] Dr. Alex Rios IG # 0.02 10e3/ul Normal 0.00-0.03 [facility] Comment on above: Performed By: #### C BC #### [facility] [address] [place] [address] Dr. Alex Rios IG % 0.3 % Normal 0.0-0.5 [facility] Comment on above: Performed By: #### C BC #### [facility] [address] [place] [address] Dr. Alex Rios LYMPH # 1.7 103/ul Normal 1.2-3.8 [facility] Comment on above: Performed By: #### C BC #### [facility] [address] [place] [address] Dr. Alex Rios Lymphocytes/100 WBC (Bld) 25.5 % Normal 20.5-60.0 [facility] Comment on above: Performed By: #### C BC #### [facility] [address] [place] [address] Dr. Alex Rios MANUAL DIFF REQ NO Normal [facility] Comment on above: Performed By: #### C BC #### [facility] [address] [place] [address] Dr. Alex Rios MCH (RBC) [Entitic mass] 31.1 pg Normal 25.9-34.0 [facility] Comment on above: Performed By: #### C BC #### [facility] [address] [place] [address] Dr. Alex Rios MCHC (RBC) [Mass/Vol] 32.5 g/dL Normal 29.9-35.2 [facility] Comment on above: Performed By: #### C BC #### [facility] [address] [address] [address] Alex Rios MCV (RBC) [Entitic vol] 95.5 fL Critically high 80.0-94.0 [facility] Comment on above: Performed By: #### C BC #### [facility] [address] [place] [address] Dr. Alex Rios MONO # 0.7 103/ul Normal 0.3-0.8 [facility] Comment on above: Performed By: #### C BC #### [facility] [address] [place] [address] Dr. Alex Rios Monocytes/100 WBC (Bld) 11.0 % Normal 1.7-12.0 [facility] Comment on above: Performed By: #### C BC #### [facility] [address] [place] [address] Dr. Alex Rios NEUT # 3.8 103/ul Normal 1.4-6.5 [facility] Comment on above: Performed By: #### C BC #### [facility] [address] [place] [address] Dr. Alex Rios Neutrophils/100 WBC (Bld) 57.7 % Normal 43.0-75.0 [facility] Comment on above: Performed By: #### C BC #### [facility] [address] [place] [address] Dr. Alex Rios Platelet mean volume (Bld) [Entitic vol] 10.6 fL Normal 9.5-13.5 [facility] Comment on above: Performed By: #### C BC #### [facility] [address] [place] [address] Dr. Alex Rios PLT 220 103/ul Normal 150-450 [facility] Comment on above: Performed By: #### C BC #### [facility] [address] [place], [place] [id number] Dr. Alex Rios RBC 4.44 106/ul Critically low 4.70-6.10 [facility] Comment on above: Performed By: #### C BC #### [facility] [address] [place] [address] Dr. Alex Rios WBC 6.5 103/ul Normal 4.0-11.0 [facility] Comment on above: Performed By: #### C BC #### [facility] [address] [address] [address] Alex Rios LIPID PROFILEon 11-15-2021 CHOL-HDL RATIO NORM SEE BELOW Normal [facility] Comment on above: Result Comment: 3.3 - 4.4 LOW RISK 4.4 - 7.1 AVERAGE RISK 7.1 - 11.0 MODERATE RISK >11.0 HIGH RISK Performed By: #### C MP, LIPID #### [facility] [address] [place], [place] [address] Dr. Alex Rios Cholesterol [Mass/Vol] 184 mg/dL Normal <=200 [facility] Comment on above: Performed By: #### C MP, LIPID #### [facility] [address] [address] [address] Alex Rios Cholesterol in HDL [Mass/Vol] 45 mg/dL Normal 40-60 [facility] Comment on above: Performed By: #### C MP, LIPID #### [facility] [address] [place], [place] [address] Dr. Alex Rios Cholesterol in LDL [Mass/Vol] 121.2 mg/dL Normal [facility] Comment on above: Performed By: #### C MP, LIPID #### [facility] [address] [place], [place] [address] Dr. Alex Rios Cholesterol.total/C holesterol in HDL [Mass ratio] 4.1 {ratio} Normal [facility] Comment on above: Performed By: #### C MP, LIPID #### [facility] [address] [place], [place] [address] Dr. Alex Rios HDL NORMAL > or = 60 mg/dl - LO W CARDIOVASCULAR RISK <40 mg/dl - HIGH CARDIOVASCULAR RISK Normal [facility] Comment on above: Performed By: #### C MP, LIPID #### [facility] [address] [place], [place] [address] Dr. Alex Rios LDL CALC NORMAL SEE BELOW Normal [facility] Comment on above: Result Comment: <100 mg/dl OPTIMAL 100 - 129 mg/dl NEAR OR ABOVE OPTIMAL 130 - 159 mg/dl BORDERLINE HIGH 160 - 189 mg/dl HIGH >190 mg/dl VERY HIGH Performed By: #### C MP, LIPID #### [facility] [address] [place] [address] Dr. Alex Rios Triglyceride [Mass/Vol] 89 mg/dL Normal <=150 [facility] Comment on above: Performed By: #### C MP, LIPID #### [facility] [address] [place] [address] Dr. Alex Rios VLDL CALC 17.8 mg/dL Normal [facility] Comment on above: Performed By: #### C MP, LIPID #### [facility] [address] [place] [address] Dr. Alex Rios PROF 14(COMP METB)on 022 Albumin [Mass/Vol] 3.6 g/dL Normal 3.4-5.0 [facility] Comment on above: Performed By: #### C MP, LIPID #### [facility] [address] [place] [address] Dr. Alex Rios Albumin/Globulin [Mass ratio] 0.9 {ratio} Normal [facility] Comment on above: Performed By: #### C MP, LIPID #### [facility] [address] [place] [address] Dr. Alex Rios ALP [Catalytic activity/Vol] 72 U/L Normal 46-116 [facility] Comment on above: Performed By: #### C MP, LIPID #### [facility] [address] [place] [address] Dr. Alex Rios ALT [Catalytic activity/Vol] 16 U/L Normal 16-63 [facility] Comment on above: Performed By: #### C MP, LIPID #### [facility] [address] [place] [address] Dr. Alex Rios Anion gap [Moles/Vol] 8.5 mmol/L Normal [facility] Comment on above: Performed By: #### C MP, LIPID #### [facility] [address] [place] [address] Dr. Alex Rios AST [Catalytic activity/Vol] 16 U/L Normal 15-37 [facility] Comment on above: Performed By: #### C MP, LIPID #### [facility] [address] [place] [address] Dr. Alex Rios Bilirubin [Mass/Vol] 0.3 mg/dL Normal 0.2-1.0 [facility] Comment on above: Performed By: #### C MP, LIPID #### [facility] [address] [place] [address] Dr. Alex Rios Calcium [Mass/Vol] 8.8 mg/dL Normal 8.5-10.1 [facility] Comment on above: Performed By: #### C MP, LIPID #### [facility] [address] [place] [address] Dr. Alex Rios Chloride [Moles/Vol] 106 mmol/L Normal 98-107 [facility] Comment on above: Performed By: #### C MP, LIPID #### [facility] [address] [place] [address] Dr. Alex Rios CO2 [Moles/Vol] 28.6 mmol/L Normal 21.0-32.0 [facility] Comment on above: Performed By: #### C MP, LIPID #### [facility] [address] [place] [address] Dr. Alex Rios Creatinine [Mass/Vol] 0.93 mg/dL Normal 0.70-1.30 [facility] Comment on above: Performed By: #### C MP, LIPID #### [facility] [address] [place] [address] Dr. Alex Rios EGFR-AF TAJIK >60 Normal >=60 [facility] Comment on above: Performed By: #### C MP, LIPID #### [facility] [address] [place] [address] Dr. Alex Rios EGFR-NON AF TAJIK >60 Normal >=60 [facility] Comment on above: Performed By: #### C MP, LIPID #### [facility] [address] [place] [address] Dr. Alex Rios Globulin (S) [Mass/Vol] 3.9 g/dL Normal [facility] Comment on above: Performed By: #### C MP, LIPID #### [facility] [address] [address] [address] Alex Rios Glucose [Mass/Vol] 102 mg/dL Normal 74-106 [facility] Comment on above: Performed By: #### C MP, LIPID #### [facility] [address] [address] [address] Alex Rios Potassium [Moles/Vol] 4.1 mmol/L Normal 3.5-5.1 [facility] Comment on above: Performed By: #### C MP, LIPID #### [facility] [address] [address] [address] Alex Rios Protein [Mass/Vol] 7.5 g/dL Normal 6.4-8.2 [facility] Comment on above: Performed By: #### C MP, LIPID #### [facility] [address] [place] [address] Dr. Alex Rios Sodium [Moles/Vol] 139 mmol/L Normal 136-145 [facility] Comment on above: Performed By: #### C MP, LIPID #### [facility] [address] [place] [address] Dr. Alex Rios Urea nitrogen [Mass/Vol] 9.0 mg/dL Normal 7.0-18.0 [facility] Comment on above: Performed By: #### C MP, LIPID #### [facility] [address] [place] [address] Dr. Alex Rios Urea nitrogen/Creatinine [Mass ratio] 9.7 mg/mg Normal [facility] Comment on above: Performed By: #### C MP, LIPID #### [facility] [address] [place] [address] Dr. Alex Rios UA RANDOM W/MICROSCOPICon BACTERIA NONE SEEN Normal NONE SEEN [facility] Comment on above: Performed By: #### U AMIC #### [facility] [address] [place] [address] Dr. Alex Rios Bilirubin Ql (U) Negative Normal NEGATIVE [facility] Comment on above: Performed By: #### U AMIC #### [facility] [address] [address] [address] Alex Rios CAST NONE SEEN Normal NONE SEEN [facility] Comment on above: Performed By: #### U AMIC #### [facility] [address] [address] [address] Alex Rios Clarity (U) CLEAR Normal CLEAR [facility] Comment on above: Performed By: #### U AMIC #### [facility] [address] [address] [address] Alex Rios Color (U) YELLOW Normal YELLOW [facility] Comment on above: Performed By: #### U AMIC #### [facility] [address] [address] [address] Alex Rios Crystals LM Nom (Urine sed) NONE SEEN Normal NONE SEEN [facility] Comment on above: Performed By: #### U AMIC #### [facility] [address] [address] [address] Alex Rios Epithelial cells LM Ql (Urine sed) FEW Abnormal NONE SEEN /RARE [facility] Comment on above: Performed By: #### U AMIC #### [facility] [address] [address] [address] Alex Rios Glucose Ql (U) Negative Normal NEGATIVE [facility] Comment on above: Performed By: #### U AMIC #### [facility] [address] [address] [address] Alex Rios Hemoglobin Ql (U) Negative Normal NEGATIVE [facility] Comment on above: Performed By: #### U AMIC #### [facility] [address] [address] [address] Alex Rios Ketones Ql (U) Negative Normal NEGATIVE [facility] Comment on above: Performed By: #### U AMIC #### [facility] [address] [address] [address] Alex Rios LEUKOCYTES Negative Normal NEGATIVE [facility] Comment on above: Performed By: #### U AMIC #### [facility] [address] [address] [address] Alex Rios MUCOUS MODERATE Abnormal NONE SEEN [facility] Comment on above: Performed By: #### U AMIC #### [facility] [address] [address] [address] Alex Rios Nitrite Ql (U) Negative Normal NEGATIVE [facility] Comment on above: Performed By: #### U AMIC #### [facility] [address] [place] [address] Dr. Alex Rios pH (U) 6.0 [pH] Normal 5-9 [facility] Comment on above: Performed By: #### U AMIC #### [facility] [address] [place] [address] Dr. Alex Rios RBC NONE SEEN Abnormal 0-2 [facility] Comment on above: Performed By: #### U AMIC #### [facility] [address] [place] [address] Dr. Alex Rios SPEC GRAVITY 1.025 Normal 1.005-<=1.025 [facility] Comment on above: Performed By: #### U AMIC #### [facility] [address] [address] [address] Alex Rios UA PROTEIN Negative Normal NEGATIVE/ TRACE [facility] Comment on above: Performed By: #### U AMIC #### [facility] [address] [place] [address] Dr. Alex Rios Urobilinogen Qn (U) 0.2 {Mac'U}/dL Normal 0.2 - 1. 0 [facility] Comment on above: Performed By: #### U AMIC #### [facility] [address] [place] [address] Dr. Alex Rios WBC NONE SEEN Normal NONE SEEN [facility] Comment on above: Performed By: #### U AMIC #### [facility] [address] [place] [address] Dr. lAex Rios Vital Signs Date Time Vital Sign Value Performing Clinician Facility 12-18-2023 10:42-0400 Body height 191.8 cm Sloane Cruz [employer] Work Phone: [facility] 12-18-2023 10:42-0400 Body mass index (BMI) [Ratio] 25.75 kg/m2 Sloanetrupti Colónz [employer] Work Phone: [facility] 12-18-2023 10:42-0400 Body temperature 97.5 [degF] Sloane Dinohholz [employer] Work Phone: [facility] 12-18-2023 10:42-0400 Body weight 94.71 kg Sloane Parthaholz [employer] Work Phone: [facility] 12-18-2023 10:42-0400 Diastolic blood pressure 70 mm[Hg] Sloane Aichholz [employer] Work Phone: [facility] 12-18-2023 10:42-0400 Heart rate 94 /min Sloane Dinohholz [employer] Work Phone: [facility] 12-18-2023 10:42-0400 Respiratory rate 22 /min Sloane Parthaholz [employer] Work Phone: [facility] 12-18-2023 10:42-0400 SaO2% (BldA) [Mass fraction] 98 % Sloane Dinohholz [employer] Work Phone: [facility] 12-18-2023 10:42-0400 Systolic blood pressure 110 mm[Hg] Sloane Dinohholz [employer] Work Phone: [facility] 06-15-2022 10:08-0500 Diastolic blood pressure 78 mm[Hg] Sloane Aichholz Work Phone: [facility] 06-15-2022 10:08-0500 Heart rate 76 /min Sloane Aichholz Work Phone: [facility] 06-15-2022 10:08-0500 Respiratory rate 16 /min Sloane Aichholz Work Phone: [facility] 06-15-2022 10:08-0500 SaO2% (BldA) [Mass fraction] 99 % Sloane Aichholz Work Phone: [facility] 06-15-2022 10:08-0500 Systolic blood pressure 136 mm[Hg] Sloane Aichholz Work Phone: [facility] 06-15-2022 08:21-0500 Body height 191.77 cm Sloane Aichholz Work Phone: [facility] 06-15-2022 08:21-0500 Body mass index (BMI) [Ratio] 27.7 kg/m2 Sloane Aichholz Work Phone: [facility] 06-15-2022 08:21-0500 Body weight 102.05 kg Sloane Aichholz Work Phone: [facility] - [place] 06-15-2022 07:42-0500 Body temperature 98.4 [degF] Sloane Aichholz Work Phone: [facility] [place] 06-01-2022 10:10-0500 Diastolic blood pressure 75 mm[Hg] Sloane Aichholz Work Phone: [facility] [place] 06-01-2022 10:10-0500 Heart rate 67 /min Sloane Aichholz Work Phone: [facility] [place] 06-01-2022 10:10-0500 Respiratory rate 16 /min Sloane Aichholz Work Phone: [facility] [place] 06-01-2022 10:10-0500 SaO2% (BldA) [Mass fraction] 97 % Sloane Aichholz Work Phone: [facility] [place] 06-01-2022 10:10-0500 Systolic blood pressure 145 mm[Hg] Sloane Aichholz Work Phone: [facility] [place] 06-01-2022 08:29-0500 Body height 191.77 cm Sloane Aichholz Work Phone: [facility] [place] 06-01-2022 08:29-0500 Body mass index (BMI) [Ratio] 27.7 kg/m2 Sloane Aichholz Work Phone: [facility] [place] 06-01-2022 08:29-0500 Body weight 102.05 kg Sloane Aichholz Work Phone: [facility] [place] 06-01-2022 07:19-0500 Body temperature 98.1 [degF] Sloane Dionhholz Work Phone: [facility] [place] Encounters Encounter Date Encounter Type Care Provider Facility Start: 06-30-2024 End: 06-30-2024 ambulatory SLOANE AICHHOLZ Not Available Start: 03-25-2024 End: 03-25-2024 Refill Sloane Aichholz IN[employer]ER [employer] Work Phone: [facility] Comment on above: Benign paroxysmal ve rtigo, bilateral Start: 03-05-2024 End: 03-05-2024 Refill Sloane Aichholz INSTALLER [employer] Work Phone: [facility] Comment on above: Primary hypertension (CMS/HCC); Mixed hyperlipidemia (CMS/HCC) Start: 03-05-2024 End: 03-05-2024 Telephone encounter Sloane Cruz INSTALLER [employer] Work Phone: [facility] Start: 12-18-2023 End: 12-18-2023 Patient encounter procedure Sloane Nancy INSTALLER [employer] Work Phone: [facility] Comment on above: Encounter for subseq uent annual wellness visit (AWV) in Medicare patient (Primary Dx); Emphysema, unspecified (CMS/HCC); Nicotine dependence, cigarettes, with other nicotine-induced disorders; Screening for lung cancer; Mixed hyperlipidemia (CMS/HCC); Primary hypertension (CMS/HCC); Benign paroxysmal vertigo, bilateral Start: 12-18-2023 End: 12-18-2023 ambulatory SLOANE AICHHOLZ Not Available Start: 09-20-2022 ambulatory WATCH INSPECTOR SLOANE AICHHOLZ Facil ity:H1 Start: 06-15-2022 End: 06-15-2022 ambulatory Sloane J Aichholz Facility:[facility] Start: 06-15-2022 End: 06-15-2022 Admission to same day surgery center Sloane Sundonnaz Work Phone: [facility] Start: 06-15-2022 End: 06-15-2022 ambulatory Sloane J Dinohholz Work Phone: [facility] Work Phone: Start: 06-01-2022 End: 06-01-[address] Mary Aliceer Facility:[facility] Start: 06-01-2022 End: 06-01-2022 Admission to same day surgery center Sloane Nancy Work Phone: [facility] Start: 06-01-2022 End: 06-01-[address] Dinororoholz Work Phone: [facility] Work Phone: Start: 11-21-2021 End: 11-22-2021 ambulatory WATCH INSPECTOR SLOANE ERICZ Facility:[facility] Start: 11-15-2021 End: 11-16-2021 ambulatory WATCH INSPECTOR SLOANE PARTHAHOLZ Facility:[facility] Procedures Date Procedure Procedure Detail Performing Clinician Start: 06-15-2022 Phacoemulsification of cataract with intraocular lens implantation Sloane Nancy Work Phone: Start: 06-01-2022 Phacoemulsification of cataract with intraocular lens implantation Lsoane Ericz Work Phone: Start: 11-15-2021 PSA screening WATCH INSPECTOR SLOANE NANCY Comment on above: Performed By: #### [facility] #### [facility] [address] [place] [address] Dr. Alex Rios Start: 09-01-2015 Colonoscopy Sloane bethea INSTALLER [employer] Work Phone: Plan of Treatment Date Care Activity Detail Author Start: 08-31-2025 Screening for malign ant neoplasm of colon [facility] Start: 12-17-2024 Medicare Annual Wellness (AWV) Medicare Annual Wellness (AWV) [facility] Start: 12-17-2024 Pneumococcal Vaccine : 65+ Years (1 of 1 - PCV) Pneumococcal Vaccine: 65+ Years (1 of 1 - PCV) [facility] Comment on above: Postponed from 12/12 (Patient Refused) Start: 12-17-2024 Pneumococcal Vaccine : 65+ Years (1 of 2 - PCV) Pneumococcal Vaccine: 65+ Years (1 of 2 - PCV) [facility] Comment on above: Postponed from 12/12 (Patient Refused) Start: 02-12-2024 Influenza vaccination Influenza Vacc ine (#1) [facility] Comment on above: Postponed from 12/22 (Patient Refused) Start: 12-23-2023 Influenza vaccination Influenza Vacc ine (#1) [facility] Start: 12-18-2023 End: 12-17-2024 CT Chest for screening WO contrast CT lung screening low dose Imaging Routine Nicotine dependence, cigarettes, with other nicotine-induced disorders Screening for lung cancer Expected: 12/18/2023 (Approximate), Expires: 12/17/2024 [facility] Work Phone: Comment on above: Expected: 12/18/2023 (Approximate), Expires: 12/17/2024 Start: 06-15-2022 End: 06-15-2022 [facility] Start: 06-01-2022 End: 06-01-2022 [facility] Start: 1955 Screening for malign ant neoplasm of colon [facility] Patient referral [facility] Work Phone: Immunizations Immunization Date Immunization Notes Care Provider Fa cility 08-24-2020 COVID-19 mRNA-1273 (Moderna) Sloane Cruz Work Phone: [facility] [place] 07-27-2020 COVID-19 mRNA-1273 (Moderna) Sloane Cruz Work Phone: [facility] [place] Payers Date Payer Category Payer Medicaid [id number] 2023 Medicaid [id number] 2022 Self-pay [id number] 2019 Medicare [employer] MEDICARE UHC DUAL COMPLETE [id number] 2019-Present [address] [place] [address] [id number] 2019 Medicare (Managed Care) [facility] MEDICARE [id number] 1959 Medicaid [id number] 1959 Private Health Insurance [id number] 1959 Unknown [id number] 1955 Unknown [id number] 1955 Unknown [id number] 1955 Unknown [id number] 1955 Unknown [id number] 1259 1955 Unknown [id number] [id number] Unknown [id number] Unknown [id number] Social History Date Type Detail Facility Start: 06-01-2022 End: 06-15-2022 Tobacco smoking status [facility] Smoker (finding) [facility] Start: 1955 Sex Assigned At Male F [facility] Start: 12-18-[facility]23 [facility] History of tobacco use Cigarette Smoker [facility] Start: 12-18-2023 Tobacco use and exposure Smokeless tobacco non-user [facility] Start: 12-18-2023 History of Social function [facility] Start: 12-18-2023 Tobacco use panel [facility] Start: 1955 Sex assigned at Not on file N [facility] Medical Equipment Procedure Code Equipment Code Equipment Origin al Text Equipment Identifier Dates Phacoemulsification of cataract with intraocular lens implantation Posterior-chamber intraocular lens, pseudophakic [id number] [facility] Start: 06-01-2022 Goals Date Patient Goal Desired [...] an appt with me for 05/2024 [place] [facility] 03-25-2024 Miscellaneous Notes Please call pt to schedule an appt with me for 05/2024 [place] documented in this encounter [facility] 03-05-2024 Miscellaneous Notes Pt needs a fu appt in May 2024 please call to schedule [place] documented in this encounter [facility] 03-05-2024 Telephone encounter Note Pt needs a fu appt in May 2024 please call to schedule [place] [facility] 12-18-2023 History of Presen t illness Narrative [...] from the original note were not included. Cristal Langley is a 68 y.o. male presents with [...] Recommend quitting smoking documented in this encounter [facility] Evaluation note No assessment inform ation available [facility] Work Phone: Evaluation note Diagnosis Encounter for subsequent annual wellness visit (AWV) in Medicare patient- Primary Emphysema, unspecified (CMS/HCC) Nicotine dependence, cigarettes, with other nicotine-induced disorders Screening for lung cancer Mixed hyperlipidemia (CMS/HCC) Mixed hyperlipidemia Primary hypertension (CMS/HCC) Unspecified essential hypertension Benign paroxysmal vertigo, bilateral Primary hypertension (CMS/HCC) Unspecified essential hypertension Mixed hyperlipidemia (CMS/HCC) Mixed hyperlipidemia [facility] Diagnosis Encounter for subsequent annual wellness visit (AWV) in Medicare patient- Primary Emphysema, unspecified (CMS/HCC) Nicotine dependence, cigarettes, with other nicotine-induced disorders Screening for lung cancer Mixed hyperlipidemia (CMS/HCC) Mixed hyperlipidemia Primary hypertension (CMS/HCC) Unspecified essential hypertension Benign paroxysmal vertigo, bilateral Benign paroxysmal vertigo, bilateral [facility] Diagnosis Encounter for subsequent annual wellness visit (AWV) in Medicare patient- Primary Emphysema, unspecified (CMS/HCC) Nicotine dependence, cigarettes, with other nicotine-induced disorders Screening for lung cancer Mixed hyperlipidemia (CMS/HCC) Mixed hyperlipidemia Primary hypertension ([facility]) Unspecified essential hypertension Benign paroxysmal vertigo, bilateral [facility] Additional Instructions POST CATARACT SURGERY [...] worsening of your eyesight. Please call your return to vendor during normal business hours. If after business hours call Dr. Valeriy Lima at his cell [phone] or his office [phone].[facility] Work Phone: Hospital Discharge instructions Additional Instructions [...] worsening of your eyesight. Please call your return to vendor during normal business hours. If after business hours call Dr. Valeriy Lima at his cell [phone] or his office [phone].[facility] Work Phone: Chief Complaint and Reason for [...] Referral Specialty Diagnoses / Procedures Referred By Contac t Referred To Contact Radiology Diagnoses Nicotine dependence, cigarettes, with other nicotine-induced disorders Screening for lung cancer Procedures CT lung screening low dose Sloane Cruz NP [address] [place] [address] [facility] [address] [address] Referral ID Status Reason Start Date Expiration Date V isits Requested Visits Authorized [id number] Pending Review 12/18/2023 06/15/2024 1 1 Additional Source Comments Care Teams (unrecognized sec tion and content) Team Status: Inactive Member Role Status Dates Valeriy Lima MD Attending Provider Active Sloane Cruz Primary Care Provider Active Team Status: Active Member Role Status Dates Sloane Cruz Primary Care Provider Active [address] Service Relationship Specialty Start Date End Date Jagjit Vargas MD [address] [place] [phone] PCP - General Family Medicine 12/18/23 Sloane Cruz NP [address] [place] [phone] Nurse Practitioner Family Medicine 12/18/[address] Service Relationship Specialty Start Date End Date Jagjit Vargas MD [address] [place] [address] PCP - General Family Medicine 12/18/23 Sloane Cruz NP [address] [place] [address] Nurse Practitioner Family Medicine 12/18/[address] Service Relationship Specialty Start Date End Date Jagjit Vargas MD [address] [place] [phone] PCP - General Family Medicine 12/18/23 Sloane Cruz NP [address] [place] [phone] Nurse Practitioner Family Medicine 12/18/[address] Service Relationship Specialty Start Date End Date Jagjit Vargas MD [address] [place] [phone] PCP - General Family Medicine 12/18/23 Sloane Cruz NP [address] [place] [phone] Nurse Practitioner Family Medicine 12/18/23 (unrecognized sect ion and content) No Status Records FoundNo Status Records FoundNo Status Records Found INFORMATION SOURCE (unrecogn ized section and content) DATE CREATED AUTHOR 06/22/2022 [facility] DATE CREATED AUTHOR AUTHOR'S ORGANIZ ATION 09/29/2022 [facility] DATE CREATED AUTHOR AUTHOR'S ORGANIZ ATION 07/01/2024 [facility] EPIC Reason for Visit (unrecogniz [...] BE BASED ON THE PRIMARY CLINICAL RECORDS. [facility]. provides no warranty or guarantee of the accuracy or completeness of information in this document.
== END 2024-07-09 07:56 | disposition home or self-care (01) ==
LOC: CT 07:55
PROVIDERS: PCP Nurse Practitioner; Visit Provider Nurse Practitioner
DX: R19.7 Diarrhea, unspecified (principal); R10.13 Epigastric pain; K56.699 Other intestinal obstruction unspecified as to partial versus complete obstruction; R19.09 Other intra-abdominal and pelvic swelling, mass and lump
CPT/HCPCS: 74177; Q9967